=== PATIENT | female | born 1985 | race Caucasian/White ===

== ENCOUNTER 2017-06-23 11:48 | Emergency (ER) | payer OTHER ==
[~2017-06-23] VITALS: Ht 149.9 cm; Wt 55.0 kg
[2017-06-23 11:51] VITALS: TEMP 37.1; Ht 149.9 cm; Wt 55.0 kg
--- NOTE | 2017-06-23 12:23 | EMERGENCY ROOM VISIT NOTE ---
History Report prepared by Sole: Chantelle Paredes Under the Supervision of: Dr. Dong Gilliam M.D. First contact with patient: 11:58 Chief Complaint: ABDOMINAL PAIN Stated Complaint: PAIN UNDER RT LOWER RIBS/CHEST, RT SHOULDER PAIN Nursing Triage Summary: patient to Ed for upper right sided abdominal pain, states "I feel like I am having a gallbladder attack, since yesterday. I had my gallbladder out though" History of Present Illness The patient is a 31 year old female who presents to the Emergency Room with complaints of persistent right upper quadrant abdominal pain that began yesterday. She rates her discomfort as a 5/10 in severity. The patient describes her pain as radiating from her right upper quadrant to her neck. She states that she has some chest pain and reports intermittent shortness of breath. The patient denies any fever, chills, nausea, or vomiting. She notes that the pain worsens when she takes deep breaths, coughs, or yawns. The patient notes that she has had 2 open heart surgeries in the past due to mitral and aortic valve stenosis. The patient states she had a cholecystectomy over one year ago, but notes that her pain feels similar to before she had her cholecystectomy. Source of History: patient Onset: Yesterday Position: abdomen (RUQ) Symptom Intensity: 5/10 Timing: other (persistent ) Modifying Factors (Worsening): breathing (heavy breathing, coughing, yawning ) Associated Symptoms: + chest pain, + SOB, No fevers, No chills, No nausea, No vomiting Review of Systems All systems have been listed, reviewed, and are negative other than those previously mentioned. Please see Additional Medical History Sheet. Past Medical & Surgical Medical Problems: (1) Congenital subaortic stenosis (2) congenital valvular disease (3) Mitral valve disorder (4) open heart surgery Surgical Problems: (1) Hx laparoscopic cholecystectomy Family History FH: cancer FH: diabetes mellitus FH: gallbladder disease FH: heart disease FH: hypertension FH: kidney disease FH: lung disease Social History Smoking Status: Current Every Day Smoker Alcohol Use: none Housing Status: lives with family Occupation Status: unemployed Current/Historical Medications Scheduled PRN Tramadol (Ultram), 50 MG PO Q4H PRN for Pain Allergies Coded Allergies: Penicillins (Unverified Adverse Reaction, Mild, REDNESS, 06/23/17) PT CLAIMS TO HAVE REDNESS WHEN TAKING PENICILLINS, BUT CAN TOLERATE THE DRUG Aspirin (Unverified Adverse Reaction, Unknown, AVOIDS DUE TO HEART PROBLEM , 06/23/17) Physical Exam Vital Signs Date Time Temp Pulse Resp B/P (MAP) Pulse Ox O2 Delivery O2 Flow Rate FiO2 06/23/17 14:00 57 18 113/53 99 Room Air 06/23/17 12:24 88 06/23/17 11:51 37.1 97 20 121/71 98 Room Air Physical Exam GENERAL: Patient awake, alert, oriented x 3. Patient follows commands. Patient does not appear toxic. Patient is adequately hydrated and well- nourished. SKIN: No erythema, pallor, cyanosis or rash HEENT: Normal head, pupils equal, reactive to light and accommodation. CHEST: Well healed midline sternotomy scars. LUNGS: Clear to auscultation. No wheezes, no rales, no rhonchi. HEART: No murmurs. No gallops. No rubs ABDOMEN: Vague right upper quadrant tenderness. Small laparoscopic cholecystectomy scars. No masses, no rebound, no hepatomegaly or splenomegaly. EXTREMITIES: No signs of trauma or infection. NEUROLOGIC: Cranial nerves II-XII within normal limits. No gross motor sensory function deficits. Medical Decision & Procedures ER Provider Diagnostic Interpretation: Radiology results as stated below per my review and radiologist interpretation: GALLBLADDER-ABD LIMITED CLINICAL HISTORY: ruq pain prior cholecystectomy pain. Nausea. TECHNIQUE: Ultrasound COMPARISON STUDY: CT abdomen and pelvis 04/05/2016. Ultrasound 11/27/2014 FINDINGS: Prior cholecystectomy. Mild fatty infiltration of liver. Common bile duct 4 mm. Pancreas and right kidney unremarkable. No evidence for hydronephrosis. IMPRESSION: Negative study status post cholecystectomy. Normal caliber bile ducts. Fatty infiltration of the liver. The above report was generated using voice recognition software. It may contain grammatical, syntax or spelling errors. Electronically signed by: Daniel Rose M.D. 06/23/2017 1:56 PM TWO VIEW CHEST CLINICAL HISTORY: Right upper quadrant abdominal pain. FINDINGS: PA and lateral chest radiographs are compared to study dated 05/09/2015. The patient is status post midline sternotomy. The cardiomediastinal silhouette is unremarkable. Small calcified granulomas are noted. The lungs and pleural spaces are otherwise clear. There is no pneumothorax. The bony thorax appears intact. Call cystectomy clips are seen in the right upper quadrant. There is mild S-shaped thoracolumbar scoliosis. IMPRESSION: No active disease in the chest. Electronically signed by: Conrado Marsh M.D. 06/23/2017 1:29 PM Laboratory Results 06/23/17 12:40 Red Blood Count 4.62, Mean Corpuscular Volume 85.5, Mean Corpuscular Hemoglobin 29.9, Mean Corpuscular Hemoglobin Concent 34.9, Mean Platelet Volume 10.7, Neutrophils (%) (Auto) 58.1, Lymphocytes (%) (Auto) 31.6, Monocytes (%) (Auto) 8.3, Eosinophils (%) (Auto) 0.8, Basophils (%) (Auto) 1.0, Neutrophils # (Auto) 3.57, Lymphocytes # (Auto) 1.94, Monocytes # (Auto) 0.51, Eosinophils # (Auto) 0.05, Basophils # (Auto) 0.06 06/23/17 12:40 Test 06/23/17 12:02 06/23/17 12:40 Urine Color YELLOW Urine Appearance CLEAR (CLEAR) Urine pH 7.0 (4.5-7.5) Urine Specific [place] 1.017 (1.000-1.030) Urine Protein NEG (NEG) Urine Glucose (UA) NEG (NEG) Urine Ketones NEG (NEG) Urine Occult Blood NEG (NEG) Urine Nitrite NEG (NEG) Urine Bilirubin NEG (NEG) Urine Urobilinogen NEG (NEG) Urine Leukocyte Esterase NEG (NEG) Urine Test NEG (NEG) White Blood Count 6.14 K/uL (4.8-10.8) Red Blood Count 4.62 M/uL (4.2-5.4) Hemoglobin 13.8 g/dL (12.0-16.0) Hematocrit 39.5 % (37-47) Mean Corpuscular Volume 85.5 fL (80-100) Mean Corpuscular Hemoglobin 29.9 pg (25-34) Mean Corpuscular Hemoglobin Concent 34.9 g/dl (32-36) Platelet Count 246 K/uL (130-400) Mean Platelet Volume 10.7 fL (7.4-10.4) Neutrophils (%) (Auto) 58.1 % Lymphocytes (%) (Auto) 31.6 % Monocytes (%) (Auto) 8.3 % Eosinophils (%) (Auto) 0.8 % Basophils (%) (Auto) 1.0 % Neutrophils # (Auto) 3.57 K/uL (1.4-6.5) Lymphocytes # (Auto) 1.94 K/uL (1.2-3.4) Monocytes # (Auto) 0.51 K/uL (0.11-0.59) Eosinophils # (Auto) 0.05 K/uL (0-0.5) Basophils # (Auto) 0.06 K/uL (0-0.2) RDW Standard Deviation 37.7 fL (36.4-46.3) RDW Coefficient of Variation 12.2 % (11.5-14.5) Immature Granulocyte % (Auto) 0.2 % Immature Granulocyte # (Auto) 0.01 K/uL (0.00-0.02) Anion Gap 9.0 mmol/L (3-11) Est Creatinine Clear Calc Drug Dose 92.9 ml/min Estimated GFR () 136.7 Estimated GFR (Non- 118.0 BUN/Creatinine Ratio 19.2 (10-20) Calcium Level 9.3 mg/dl (8.5-10.1) Total Bilirubin 0.6 mg/dl (0.2-1) Aspartate Amino Transf (AST/SGOT) U/L (15-37) Alanine Aminotransferase (ALT/SGPT) 18 U/L (12-78) Alkaline Phosphatase 63 U/L (45-117) Troponin I < 0.015 ng/ml (0-0.045) Total Protein 8.3 gm/dl (6.4-8.2) Albumin 4.2 gm/dl (3.4-5.0) Globulin 4.1 gm/dl (2.5-4.0) Albumin/Globulin Ratio 1.0 (0.9-2) Lipase 180 U/L (73-393) Laboratory results as stated above per my review. ECG Indication: abdominal pain Rate (beats per minute): 77 Rhythm: sinus rhythm (with arrhythmia ) Findings: PVC (No PVC), no acute ischemic change, other (no PAC ) ED Course 1203: Past medical records reviewed. The patient was evaluated in room C5. A complete history and physical examination was performed. 1525: I reevaluated the patient and Medical Decision Nurses notes reviewed. Medical history sheet reviewed. Differential diagnosis includes but is not limited to: Common Bile Duct Stone, Pneumonia, Pancreatitis , Peptic Ulcer Disease, pyelonephritis, musculoskeletal pain. Multiple labs, urinalysis and imaging were obtained. Please see above. Patient does not appear to have a common bowel duct stone. I do not think she has pancreatitis. Chest x-ray does not reveal pneumonia. Labs are unremarkable. The patient will be given tramadol for pain. She is to follow- up with her family physician or return here if symptoms are not resolving over the next few days. [place] Drug Monitoring Program Search Results: patient reviewed within database, no issues identified Medication Reconcilliation Current Medication List: was personally reviewed by me Impression Primary Impression: Right upper quadrant abdominal pain Scribe Attestation The scribe's documentation has been prepared under my direction and personally reviewed by me in its entirety. I confirm that the note above accurately reflects all work, treatment, procedures, and medical decision making performed by me. Departure Information Dispostion Home / Self-Care Prescriptions Tramadol (Ultram) 50 Mg Tab 50 MG PO Q4H Y for Pain, #10 TAB Prov: Dong Gilliam M.D. 06/23/17 Referrals No Doctor, Assigned (PCP) Forms Call Back Authorization, HOME CARE DOCUMENTATION FORM, IMPORTANT VISIT INFORMATION Patient Instructions My [facility] Additional Instructions 1 tramadol every 4-6 hours as needed for pain. Follow-up with your family physician within the next week if symptoms have not resolved. Return here sooner if symptoms are getting worse.
[2017-06-23 12:53] LABS: BASO ABS # 0.06 K/uL (0-0.2); COMPLETE YES; EOS % 0.8 %; HEMATOCRIT 39.5 % (37-47); IG% 0.2 %; LYMPH % 31.6 %; LYMPH ABS # 1.94 K/uL (1.2-3.4); MEAN CELL VOLUME 85.5 fL (80-100); MEAN CORPUSCULAR HEMOGLOBIN 29.9 pg (25-34); MEAN CORPUSCULAR HGB CONC 34.9 g/dl (32-36); MEAN PLATELET VOLUME 10.7 fL (7.4-10.4); MONO % 8.3 %; NEUT % 58.1 %; PLATELET COUNT 246 K/uL (130-400); RED BLOOD COUNT 4.62 M/uL (4.2-5.4); WHITE BLOOD COUNT 6.14 K/uL (4.8-10.8)
[2017-06-23 13:29] LABS: ALKALINE PHOSPHATASE 63 U/L (45-117); ALT/SGPT 18 U/L (12-78); BLOOD UREA NITROGEN 13 mg/dl (7-18); BUN/CREATININE RATIO 19.2 (10-20); CALCIUM 9.3 mg/dl (8.5-10.1); CARBON DIOXIDE 22 mmol/L (21-32); CHLORIDE 106 mmol/L (98-107); CREATININE 0.67 mg/dl (0.60-1.20); GLUCOSE 80 mg/dl (70-99); SODIUM 137 mmol/L (136-145)
--- NOTE | 2017-06-23 13:30 | DIAGNOSTIC IMAGING REPORT ---
TWO VIEW CHEST CLINICAL HISTORY: Right upper quadrant abdominal pain. FINDINGS: PA and lateral chest radiographs are compared to study dated 05/09/2015. The patient is status post midline sternotomy. The cardiomediastinal silhouette is unremarkable. Small calcified granulomas are noted. The lungs and pleural spaces are otherwise clear. There is no pneumothorax. The bony thorax appears intact. Call cystectomy clips are seen in the right upper quadrant. There is mild S-shaped thoracolumbar scoliosis. IMPRESSION: No active disease in the chest. Electronically signed by: Conrado Marsh M.D. 06/23/2017 1:29 PM Dictated Date/Time: 06/23/2017 1:28 PM
--- NOTE | 2017-06-23 13:58 | DIAGNOSTIC IMAGING REPORT ---
GALLBLADDER-ABD LIMITED CLINICAL HISTORY: ruq pain prior cholecystectomy pain. Nausea. TECHNIQUE: Ultrasound COMPARISON STUDY: CT abdomen and pelvis 04/05/2016. Ultrasound 11/27/2014 FINDINGS: Prior cholecystectomy. Mild fatty infiltration of liver. Common bile duct 4 mm. Pancreas and right kidney unremarkable. No evidence for hydronephrosis. IMPRESSION: Negative study status post cholecystectomy. Normal caliber bile ducts. Fatty infiltration of the liver. The above report was generated using voice recognition software. It may contain grammatical, syntax or spelling errors. Electronically signed by: Daniel Rose M.D. 06/23/2017 1:56 PM Dictated Date/Time: 06/23/2017 1:55 PM
[2017-06-23 14:10] LABS: URINE APPEARANCE CLEAR (CLEAR); URINE BILIRUBIN NEG (NEG); URINE COLOR YELLOW; URINE NITRITE NEG (NEG); URINE SPECIFIC GRAVITY 1.017 (1.000-1.030); UROBILINOGEN NEG (NEG); ZZUR CULT IF INDIC CLEAN CATCH NO
[2017-06-23 14:15] LABS: MANUAL MICROSCOPIC REQUIRED? NO; REVIEW REQ? NO
[2017-06-23] MEDS ORDERED: TRAM-10 PO (15:39)
[2017-06-23 16:05] VITALS: BP 111/72; PULSE 65; O2SAT 100
== END 2017-06-23 16:06 | disposition home or self-care (01) ==
LOC: C.EDB 11:49 → C.EDC 16:06
DX: R10.11 Right upper quadrant pain (principal); I34.9 Nonrheumatic mitral valve disorder, unspecified; F17.200 Nicotine dependence, unspecified, uncomplicated; Z90.49 Acquired absence of other specified parts of digestive tract; Z88.0 Allergy status to penicillin; Z88.6 Allergy status to analgesic agent; Z80.9 Family history of malignant neoplasm, unspecified; Z83.3 Family history of diabetes mellitus; Z83.79 Family history of other diseases of the digestive system; Z82.49 Family history of ischemic heart disease and other diseases of the circulatory system; Z84.1 Family history of disorders of kidney and ureter

== ENCOUNTER 2017-10-30 18:26 | Emergency (ER) | payer OTHER ==
[~2017-10-30] VITALS: Ht 147.3 cm; Wt 52.7 kg
[~2017-10-30 18:26] MED LIST: TRAM-10 PO
[2017-10-30 18:49] VITALS: TEMP 37; Ht 147.3 cm; Wt 52.7 kg
[2017-10-30] MEDS ORDERED: SODIUM CHLORIDE 0.9% 1000ML 1,000 ML IV STA (19:06)
[2017-10-30] MEDS ORDERED: KETOROLAC TROMETHAMINE 30 MG/ML VIAL IV STA (19:06)
--- NOTE | 2017-10-30 19:23 | DIAGNOSTIC IMAGING REPORT ---
CHEST ONE VIEW PORTABLE CLINICAL HISTORY: 32 years-old Female presenting with Evaluate Fever/Sepsis. TECHNIQUE: Portable upright AP view of the chest was obtained. COMPARISON: 06/23/2017. FINDINGS: Median sternotomy wires noted. Vertex silhouette top normal in size. No focal opacity. No large effusion or pneumothorax. Osseous structures normal. Upper abdomen normal. IMPRESSION: 1. No acute cardiopulmonary disease. Electronically signed by: Delmer Noguera M.D. 10/30/2017 7:21 PM Dictated Date/Time: 10/30/2017 7:21 PM
[2017-10-30 19:50] LABS: BASO % 0.5 %; BASO ABS # 0.05 K/uL (0-0.2); EOS % 0.2 %; EOS ABS # 0.02 K/uL (0-0.5); HEMATOCRIT 34.9 % (37-47); HEMOGLOBIN 12.5 g/dL (12.0-16.0); IG# 0.02 K/uL (0.00-0.02); LYMPH % 17.8 %; LYMPH ABS # 1.91 K/uL (1.2-3.4); MEAN CELL VOLUME 85.3 fL (80-100); MEAN CORPUSCULAR HEMOGLOBIN 30.6 pg (25-34); MEAN CORPUSCULAR HGB CONC 35.8 g/dl (32-36); MEAN PLATELET VOLUME 10.6 fL (7.4-10.4); MONO % 8.2 %; MONO ABS # 0.88 K/uL (0.11-0.59); NEUT % 73.1 %; NEUT ABS # 7.85 K/uL (1.4-6.5); PLATELET COUNT 213 K/uL (130-400); RED CELL DISTRIBUTION WIDTH CV 12.4 % (11.5-14.5); RED CELL DISTRIBUTION WIDTH SD 38.6 fL (36.4-46.3); WHITE BLOOD COUNT 10.73 K/uL (4.8-10.8)
[2017-10-30 20:11] LABS: ALBUMIN 3.8 gm/dl (3.4-5.0); ALT/SGPT 19 U/L (12-78); BLOOD UREA NITROGEN 7 mg/dl (7-18); CALCIUM 9.1 mg/dl (8.5-10.1); CARBON DIOXIDE 26 mmol/L (21-32); CREATININE 0.74 mg/dl (0.60-1.20); GLUCOSE 83 mg/dl (70-99); POTASSIUM 3.2 mmol/L (3.5-5.1); SODIUM 137 mmol/L (136-145)
[2017-10-30 20:16] LABS: ALKALINE PHOSPHATASE 68 U/L (45-117); AST/SGOT 18 U/L (15-37); CKMB 0.7 ng/ml (0.5-3.6); TOTAL PROTEIN 8.1 gm/dl (6.4-8.2)
[2017-10-30 20:30] LABS: INFLUENZA B ANTIGEN Neg for Influ B (NEG)
[2017-10-30] MEDS ORDERED: SERT-234 PO (21:04)
--- NOTE | 2017-10-30 22:04 | EMERGENCY ROOM VISIT NOTE ---
History Report prepared by Sole: Trino Estrada Under the Supervision of: Dr. Donnie Sanches D.O. First contact with patient: 19:00 Chief Complaint: BACK PAIN Stated Complaint: SEVERE BACK PAIN, NECK PAIN, KIDNEY AREA History of Present Illness The patient is a 32 year old female who presents to the Emergency Room with complaints of constant severe back pain that she rates as 9/10 that began 2 days ago. She complains of pain in her throat, between her shoulder blades, and pain in her kidneys. She complains of a sore throat, and fatigue. She states she had fever 2 days ago. She spoke to her PCP and was prescribed Tamiflu which she started on 10/29/2017. She states she has been taking Ibuprofen with minimal improvement. She takes Zoloft every day. She denies headaches, urinary symptoms , cough, diarrhea, nausea, and vomiting. Of note, her LMP was 10/09/2017. Source of History: patient Onset: 2 days ago Position: back Symptom Intensity: pain rated as 9/10 Timing: constant Associated Symptoms: + sorethroat, + fatigue, No headache, No cough, No nausea, No vomiting, No diarrhea, No urinary symptoms Review of Systems See HPI for pertinent positives & negatives. A total of 10 systems reviewed and were otherwise negative. Past Medical & Surgical Medical Problems: (1) Congenital subaortic stenosis (2) congenital valvular disease (3) Mitral valve disorder (4) open heart surgery Surgical Problems: (1) History of open heart surgery (2) Hx laparoscopic cholecystectomy (3) Hx of cholecystectomy Family History FH: cancer FH: diabetes mellitus FH: gallbladder disease FH: heart disease FH: hypertension FH: kidney disease FH: lung disease Social History Smoking Status: Current Every Day Smoker Alcohol Use: none Housing Status: lives with family Occupation Status: unemployed Current/Historical Medications Scheduled Sertraline (Zoloft), 100 MG PO DAILY Allergies Coded Allergies: Penicillins (Unverified Adverse Reaction, Mild, REDNESS, 10/30/17) PT CLAIMS TO HAVE REDNESS WHEN TAKING PENICILLINS, BUT CAN TOLERATE THE DRUG Aspirin (Unverified Adverse Reaction, Unknown, AVOIDS DUE TO HEART PROBLEM , 10/30/17) Physical Exam Vital Signs Date Time Temp Pulse Resp B/P (MAP) Pulse Ox O2 Delivery O2 Flow Rate FiO2 10/30/17 22:29 73 18 108/70 100 10/30/17 21:44 59 18 96/59 98 Room Air 10/30/17 19:45 75 10/30/17 19:44 67 18 101/68 96 Room Air 10/30/17 18:49 37.0 90 18 105/68 96 Room Air Physical Exam CONSTITUTIONAL/VITAL SIGNS: Reviewed / noted above. GENERAL: Non-toxic in appearance. INTEGUMENTARY: Warm, dry, and [place]. HEAD: Normocephalic. EYES: without scleral icterus or trauma. ENT/OROPHARYNX: clear and moist. LYMPHADENOPATHY/NECK: Is supple without lymphadenopathy or meningismus. RESPIRATORY: Lungs clear and equal. CARDIOVASCULAR: Regular rate and rhythm. GI/ABDOMEN: Soft and nontender. No organomegaly or pulsatile mass. No rebound or guarding. Normal bowel sounds. EXTREMITIES: Warm and well perfused. BACK: No CVA tenderness. NEUROLOGICAL: Intact without focal deficits. PSYCHIATRIC: normal affect. MUSCULOSKELETAL: Normally developed with good muscle tone. Medical Decision & Procedures ER Provider Diagnostic Interpretation: Radiology results as stated below per my review and radiologist interpretation: CHEST ONE VIEW PORTABLE CLINICAL HISTORY: 32 years-old Female presenting with Evaluate Fever/Sepsis. TECHNIQUE: Portable upright AP view of the chest was obtained. COMPARISON: 06/23/2017. FINDINGS: Median sternotomy wires noted. Vertex silhouette top normal in size. No focal opacity. No large effusion or pneumothorax. Osseous structures normal. Upper abdomen normal. IMPRESSION: 1. No acute cardiopulmonary disease. Electronically signed by: Delmer Noguera M.D. 10/30/2017 7:21 PM Dictated Date/Time: 10/30/2017 7:21 PM Laboratory Results 10/30/17 19:40 Red Blood Count 4.09, Mean Corpuscular Volume 85.3, Mean Corpuscular Hemoglobin 30.6, Mean Corpuscular Hemoglobin Concent 35.8, Mean Platelet Volume 10.6, Neutrophils (%) (Auto) 73.1, Lymphocytes (%) (Auto) 17.8, Monocytes (%) (Auto) 8.2, Eosinophils (%) (Auto) 0.2, Basophils (%) (Auto) 0.5, Neutrophils # (Auto) 7.85, Lymphocytes # (Auto) 1.91, Monocytes # (Auto) 0.88, Eosinophils # (Auto) 0.02, Basophils # (Auto) 0.05 4/5/18 19:40 Test 10/30/17 00:00 10/30/17 19:40 10/30/17 21:05 Influenza Type A Antigen Neg for Influ A (NEG) Influenza Type B Antigen Neg for Influ B (NEG) White Blood Count 10.73 K/uL (4.8-10.8) Red Blood Count 4.09 M/uL (4.2-5.4) Hemoglobin 12.5 g/dL (12.0-16.0) Hematocrit 34.9 % (37-47) Mean Corpuscular Volume 85.3 fL (80-100) Mean Corpuscular Hemoglobin 30.6 pg (25-34) Mean Corpuscular Hemoglobin Concent 35.8 g/dl (32-36) Platelet Count 213 K/uL (130-400) Mean Platelet Volume 10.6 fL (7.4-10.4) Neutrophils (%) (Auto) 73.1 % Lymphocytes (%) (Auto) 17.8 % Monocytes (%) (Auto) 8.2 % Eosinophils (%) (Auto) 0.2 % Basophils (%) (Auto) 0.5 % Neutrophils # (Auto) 7.85 K/uL (1.4-6.5) Lymphocytes # (Auto) 1.91 K/uL (1.2-3.4) Monocytes # (Auto) 0.88 K/uL (0.11-0.59) Eosinophils # (Auto) 0.02 K/uL (0-0.5) Basophils # (Auto) 0.05 K/uL (0-0.2) RDW Standard Deviation 38.6 fL (36.4-46.3) RDW Coefficient of Variation 12.4 % (11.5-14.5) Immature Granulocyte % (Auto) 0.2 % Immature Granulocyte # (Auto) 0.02 K/uL (0.00-0.02) Anion Gap 8.0 mmol/L (3-11) Est Creatinine Clear Calc Drug Dose 79.3 ml/min Estimated GFR () 125.1 Estimated GFR (Non- 108.0 BUN/Creatinine Ratio 9.5 (10-20) Calcium Level 9.1 mg/dl (8.5-10.1) Total Bilirubin 0.3 mg/dl (0.2-1) Direct Bilirubin < 0.1 mg/dl (0-0.2) Aspartate Amino Transf (AST/SGOT) 18 U/L (15-37) Alanine Aminotransferase (ALT/SGPT) 19 U/L (12-78) Alkaline Phosphatase 68 U/L (45-117) Total Creatine Kinase 95 U/L (26-192) Creatine Kinase MB 0.7 ng/ml (0.5-3.6) Creatine Kinase MB Ratio 0.7 (0-3.0) Troponin I < 0.015 ng/ml (0-0.045) Total Protein 8.1 gm/dl (6.4-8.2) Albumin 3.8 gm/dl (3.4-5.0) Urine Color YELLOW Urine Appearance CLOUDY (CLEAR) Urine pH 8.0 (4.5-7.5) Urine Specific [place] 1.011 (1.000-1.030) Urine Protein NEG (NEG) Urine Glucose (UA) NEG (NEG) Urine Ketones NEG (NEG) Urine Occult Blood NEG (NEG) Urine Nitrite NEG (NEG) Urine Bilirubin NEG (NEG) Urine Urobilinogen NEG (NEG) Urine Leukocyte Esterase NEG (NEG) Urine WBC (Auto) 1-5 /hpf (0-5) Urine RBC (Auto) 0-4 /hpf (0-4) Urine Hyaline Casts (Auto) 1-5 /lpf (0-5) Urine Epithelial Cells (Auto) >30 /lpf (0-5) Urine Bacteria (Auto) NEG (NEG) Urine Test NEG (NEG) Laboratory results as stated above per my review. Medications Administered Medications (Trade) Dose Ordered Sig/Berenice Route Start Time Stop Time Status Last Admin Dose Admin Sodium Chloride 1,000 ml @ 999 mls/hr Q1H1M STAT IV 10/30/17 19:06 10/30/17 20:06 DC 10/30/17 19:41 999 MLS/HR Ketorolac Tromethamine (Toradol Inj) 30 mg NOW STAT IV 10/30/17 19:06 10/30/17 19:08 DC 10/30/17 19:41 30 MG ECG Per My Interpretation Indication: back/shoulder pain Rate (beats per minute): 68 Rhythm: normal sinus Findings: no ectopy, other (No ST elevation) ED Course 1899: Previous medical records were reviewed. The patient was evaluated in room A10. A complete history and physical examination was performed. 1905: Toradol Inj, 30 mg, IV; Sodium Chloride 1000 ml @ 999 mls/hr IV. 2204: On reevaluation, the patient is resting. I discussed the results and findings with the patient. She verbalized agreement of the treatment plan. She was discharged home. Medical Decision Differential includes viral illness, influenza, streptococcal pharyngitis, meningitis, pneumonia, sinusitis, UTI, pyelonephritis, otitis media. This is a 32-year-old female who presents to the ED with a chief complaint of discomfort all over. She is primarily reporting sore throat, upper lower back pain, flank pain as well as fatigue. The patient denies any urinary symptoms, denies cough, denies headache. She states that she took ibuprofen yesterday but nothing today. She contacted her PCP yesterday and was felt to have flu symptoms and started on Tamiflu. She has had symptoms since Friday, 2 days. Vital signs are normal. Physical exam was unremarkable. The patient's test results revealed a normal EKG with a normal sinus rhythm. CBC is normal, troponin was negative, complete metabolic panel was unremarkable. Flu swab was negative, chest x-ray did not show acute process. test and urinalysis did not show abnormalities. The patient was treated with IV fluids and IV Toradol. She was felt to be stable for discharge. Medication Reconcilliation Current Medication List: was personally reviewed by me Blood Pressure Screening Patient's blood pressure: Normal blood pressure Blood pressure disposition: Did not require urgent referral Impression Primary Impression: Flu-like symptoms Scribe Attestation The scribe's documentation has been prepared under my direction and personally reviewed by me in its entirety. I confirm that the note above accurately reflects all work, treatment, procedures, and medical decision making performed by me. Departure Information Dispostion Home / Self-Care Referrals No Doctor, Assigned (PCP) Patient Instructions My [facility] Additional Instructions Follow-up with your doctor for further care and evaluation in 1-2 days. Return to the emergency department for worsening or new symptoms or any concerns. You have been examined and treated today on an emergency basis only. This is not a substitute for, or an effort to provide, complete comprehensive medical care. It is impossible to recognize and treat all injuries or illnesses in a single emergency department visit. It is therefore important that you follow up closely with your doctor. Call as soon as possible for an appointment.
[2017-10-30 22:29] VITALS: BP 108/70; PULSE 73; O2SAT 100
== END 2017-10-30 22:29 | disposition home or self-care (01) ==
LOC: C.EDB 18:27 → C.EDA 22:29
DX: M54.9 Dorsalgia, unspecified (principal); R07.0 Pain in throat; R10.30 Lower abdominal pain, unspecified; R53.83 Other fatigue; F17.210 Nicotine dependence, cigarettes, uncomplicated; Z90.49 Acquired absence of other specified parts of digestive tract; I34.9 Nonrheumatic mitral valve disorder, unspecified; Z88.0 Allergy status to penicillin; Z88.6 Allergy status to analgesic agent; Z80.9 Family history of malignant neoplasm, unspecified; Z83.3 Family history of diabetes mellitus; Z83.79 Family history of other diseases of the digestive system; Z82.49 Family history of ischemic heart disease and other diseases of the circulatory system; Z84.1 Family history of disorders of kidney and ureter

== ENCOUNTER 2019-04-02 09:59 | Inpatient (IN) ==
[2019-04-02] MEDS ORDERED: ONDANSETRON INJ 2 MG/ML 2 ML VIAL IV STA (11:21)
[2019-04-02] MEDS ORDERED: MoRPHine SULFATE 4 MG/ML 1 ML CARP\\VIAL IV STA (11:21)
[2019-04-02] MEDS ORDERED: SODIUM CHLORIDE 0.9% 1000ML 1,000 ML IV SCH (11:30)
--- NOTE | 2019-04-02 11:50 | XRay Report ---
XR chest 1V portable HISTORY: 33 years-old Female chest pain acute atypical chest pain COMPARISON: Chest radiograph 03/17/2018 TECHNIQUE: Portable AP view of the chest FINDINGS: Cardiac silhouette is enlarged, unchanged. Prior median sternotomy. No pneumothorax, large pleural ef fusion, focal airspace consolidation or overt pulmonary edema. Degenerative changes of the shoulders and spine. Surgical clips project over the abdominal right upper quadrant. IMPRESSION: No acute process. The above report was generated using voice recognition software. It may contain grammatical, syntax o r spelling errors. Electronically signed by: Gustavo Durham M.D. 04/02/2019 11:49 AM
[2019-04-02 12:06] LABS: Basophils # (auto) 0.03 K/uL (0-0.2); Basophils % (auto) 0.4 %; Eosinophils # (auto) 0.04 K/uL (0-0.5); Eosinophils % (auto) 0.5 %; Hematocrit (blood only) 41.4 % (37-47); Immature Granulocytes # (auto) 0.02 K/uL (0.00-0.02); Immature Granulocytes % (auto) 0.3 %; Lymphocytes # (auto) 1.34 K/uL (1.2-3.4); Mean Corpuscular Hemoglobin 31.1 pg (25-34); Mean Corpuscular Hgb Conc 36.2 g/dL (32-36); Mean Corpuscular Volume 85.9 fL (80-100); Monocytes % (auto) 10.8 %; Platelet Count 211 K/uL (130-400); RDW Coefficient of Variation 12.4 % (11.5-14.5); RDW Standard Deviation 39.1 fL (36.4-46.3); Red Blood Count 4.82 M/uL (4.2-5.4); White Blood Count 7.43 K/uL (4.8-10.8)
[2019-04-02 12:26] LABS: Alanine Aminotransferase 24 U/L (12-78); Albumin Level 4.1 gm/dl (3.4-5.0); Aspartate Aminotransferase 22 U/L (15-37); BUN Creatinine Ratio 10.1 (10-20); Blood Urea Nitrogen 8 mg/dl (7-18); Carbon Dioxide 25 mmol/L (21-32); Chloride 105 mmol/L (98-107); Creatinine Clr Calc Pharmacy 84.2 ml/min; Est GFR (African American) 118.4; Est GFR (Non-African American) 102.2; Glucose 79 mg/dl (70-99); Lipase 83 U/L (73-393); Potassium 3.6 mmol/L (3.5-5.1); Sodium 138 mmol/L (136-145)
[2019-04-02] MEDS ORDERED: KETOROLAC 30 MG/ML VIAL IV STA (12:27)
[2019-04-02 12:31] LABS: Alkaline Phosphatase 69 U/L (45-117); Bilirubin,Total 0.7 mg/dl (0.2-1); Globulin 4.1 gm/dl (2.5-4.0); Total Protein 8.2 gm/dl (6.4-8.2); Troponin I < 0.015 ng/ml (0-0.045)
[2019-04-02] MEDS ORDERED: LIDOCAINE 5% 1 PATCH TD STA (13:02)
[2019-04-02] MEDS ORDERED: ALBUT/IPRATROP 3MG/0.5MG NEB 3 ML VIAL NEB STA (13:02)
[2019-04-02] MEDS ORDERED: OPTIRAY 320 125ml IV PRN (13:03)
--- NOTE | 2019-04-02 13:08 | CT Scan Report ---
CT ANGIOGRAM OF THE CHEST CLINICAL HISTORY: Right-sided chest pain. Possible pulmonary embolism. COMPARISON STUDY: Chest x-ray dated 04/02/2019 TECHNIQUE: Following the IV administration of 120 mL of [id number]-[id number], CT angiogram of the thorax was p erformed from the thoracic inlet to the lung bases utilizing the pulmonary embolus protocol. Images a re reviewed in the axial, sagittal, and coronal planes. IV contrast was administered without complica tion. MIP imaging was performed. A dose lowering technique was utilized adhering to the principles o f ALARA. CT DOSE: 400.77 mGycm FINDINGS: No pathologically enlarged axillary mediastinal or hilar lymph nodes were visualized. There was no evidence of thoracic aortic dilatation. There are right lower lobe pulmonary filling defects indicative of acute pulmonary embolism. There ar e no findings to indicate right ventricular strain. There is a small right pleural effusion. There are right lower lobe airspace opacities, atelectasis versus pulmonary infarction. There are min or left basilar atelectatic changes IMPRESSION: 1. Right lower lobe pulmonary artery filling defects indicating acute pulmonary embolism 2. Small right pleural effusion with right basilar airspace opacities, atelectasis versus pulmonary i nfarction Electronically signed by: Jim [place] M.D. 04/02/2019 1:07 PM
[2019-04-02 13:46] LABS: Appearance Urine Clear (Clear); Bilirubin Urine Negative (Negative); Blood Urine Negative (Negative); Color Urine Yellow; Glucose Urine UA Negative (Negative); Ketones Urine Negative (Negative); Leukocyte Esterase Urine Negative (Negative); Nitrite Urine Negative (Negative); Protein Urine Negative (Negative); Specific Gravity Urine 1.009 (1.000-1.030); Urobilinogen Urine Negative (Negative)
[2019-04-02] MEDS ORDERED: ENOXAPARIN 1 MG/KG SC SCH (14:00)
[2019-04-02] MEDS ORDERED: ENOXAPARIN INJ 60 MG/0.6 ML SYR SQ ONE (14:15)
--- NOTE | 2019-04-02 15:07 | History & Physical Report ---
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 -Patient has also had over 1 year of amenorrhea. Will order urine test to rule out . -CT PE reports possible atelectasis vs pulmonary infarct -Get bilateral Doppler venous ultrasound, lower extremity -Continue therapeutic Lovenox for now -Patient will need thrombophilia work-up on follow-up with PCP -Patient is unsure about timing of last cervical cancer. -Counseled patient extensively on need for smoking cessation -Pain controlled with Tylenol PRN. -Currently hemodynamically stable. 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 Right-sided upper abdominal pain started about 2 weeks ago described as moderate to severe, intermittent, occasionally associated with nausea, not related to activity, not relieved by ibuprofen. Patient had difficulty describing the na ture of the pain. For this patient presented to the emergency room, was evaluated and discharged on omeprazole and ondansetron. However, pain got worse yesterday, associated with cough productive of intermittent scant sputum, fevers and was worse on deep inspiration and laying on the right side. Not related to foods.Patient denied any chills, anorexia, constipation or diarrhea, melena, yellowish discoloration of eyes. Denied any history of similar complaint in the past. Patient smokes about 1 pack 3 days for the past 17 years. Denies any alcohol use or illicit drug use. Reports an active lifestyle. Denies any recent travels, fall or immobilization Has not had been menses for over 1 year. Reports she has had extensive evaluation some months ago without any definitive results. Allergies Allergy/AdvReac Type Severity Reaction Status Date / Time acetaminophen [From Tylenol] AdvReac Mild Vomiting Verified 04/02/19 14:53 Penicillins AdvReac Mild REDNESS Verified 04/02/19 14:53 aspirin AdvReac Unknown AVOIDS DUE Unverified 04/02/19 11:42 TO HEART PROBLEM Home Medications Home Medications Medication Instructions Recorded Confirmed Type omeprazole 40 mg PO DAILYBB 04/02/19 04/02/19 History ondansetron HCl 4 mg PO Q8H PRN 04/02/19 04/02/19 History Past Med/Surg History Medical History Congenital subaortic stenosis (Chronic) Mitral valve disorder (Chronic 01/05/13) Acute cholecystitis (Resolved) Surgical History Hx laparoscopic cholecystectomy H/O angioplasty History of open heart surgery Family History Aunt Breast cancer Deep vein thrombosis Pulmonary embolism Grandfather (Maternal) Lung cancer Other No pertinent family history in first degree relatives Social History Preferred Language: Uzbek Communication Ability: Effective 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: No marital status: Single Current Living Situation: Family current occupational status: employed Feels Safe at Home: Yes Smoking Status: Current every day smoker Hx Alcohol Use: No Hx Substance Use: No Childhood Exposure to Second-Hand Smoke: No Physical Activity Frequency: Daily Review of Systems Constitutional: + fever; no chills, no fatigue and no anorexia Eyes: no diplopia, no eye pain and no worsening vision Ear, Nose, Mouth, Throat: no ear discharge, no hearing loss, no nasal congestion, no nasal discharge, no epistaxis, no sore throat and no hoarseness Respiratory: + cough (Intermittently productive of scanty sputum), + pain on inspiration and + pain with cough; no dyspnea, no dyspnea on exertion and no hemoptysis Cardiovascular: no chest pain, no chest pain with activity, no palpitations, no lightheadedness, no syncope, no edema and no calf pain Gastrointestinal: + abdominal pain (RUQ pain) and + nausea (occasional); no bloating, no heartburn, no coffee ground emesis, no change in bowel habits, no change in stools, no constipation, no diarrhea/loose stools, no blood in stools and no melena Genitourinary: no dysuria and no urinary frequency Amenorrhea for over one year Musculoskeletal: no back pain, no joint pain and no muscle weakness Integumentary: no rash, no lesions and no erythema Neurologic: no falls, no paralysis, no numbness and no syncope Psychiatric: no depression, no suicidal ideation and no anxiety Endocrine: no polydipsia, no polyphagia and no cold intolerance Hematologic / Lymphatic: no easy bleeding, no coagulopathy and no unexplained weight loss Physical Exam Constitutional: well nourished, + well hydrated and average body habitus; no acute distress and not ill appearing Eyes: PERRL, conjunctivae normal, anicteric sclerae + anicteric sclerae, PERRL and EOM intact bilaterally ENMT: external ear and nose normal, oropharynx normal Neck: normal visual inspection; no tracheal deviation Respiratory: normal respiratory effort, lungs clear to auscultation no respiratory distress Auscultation: no crackles and no wheezes Cardiovascular: RRR, no murmur, no edema Rate/Rhythm: regular rate Heart Sounds: normal S1 and normal S2; no murmur Vessels: normal peripheral pulses Extremities: no pedal edema Chest (Breasts): Chest: normal inspection of chest Additional Comments: Anterior surgical scar on anterior chest wall Gastrointestinal (Abdomen): normal bowel sounds, soft, nontender, no hepatosplenomegaly Inspection/Auscultation: normal bowel sounds; abdomen not distended Percussion/Palpation: abdomen soft; abdomen nontender Musculoskeletal: no cyanosis or clubbing, extremities motor strength 5/5 Skin: Surgical scar on anterior chest wall Neurologic: moves all extremities AOx3 Psychiatric: Orientation: oriented x 3 Affect: euthymic affect; no depre ssed affect Lymphatic: no cervical or axillary lymphadenopathy Results & Data Vital Signs (Past 12 Hours) Vital Signs Temp Pulse Pulse Resp BP BP Pulse Ox 04/02/19 14:30 79 22 104/66 97 04/02/19 14:00 83 21 110/66 99 04/02/19 13:30 85 25 H 116/68 100 04/02/19 13:26 80 16 100 04/02/19 12:30 78 22 108/62 99 04/02/19 12:10 99 04/02/19 11:03 87 24 105/67 98 04/02/19 10:07 37.4 C 96 H 20 105/71 96 Laboratory Results Short CBC 04/02/19 Range/Units 11:45 WBC 7.43 (4.8-10.8) K/uL Hgb 15.0 (12.0-16.0) g/dL Hct 41.4 (37-47) % Plt Count 211 (130-400) K/uL BMP 04/02/19 11:45 Sodium 138 Potassium 3.6 Chloride 105 Carbon Dioxide 25 BUN 8 Creatinine 0.77 Glucose 79 Calcium 9.0 Cardiac Enzymes 04/02/19 Range/Units 11:45 Troponin I < 0.015 (0-0.045) ng/ml Liver Function 04/02/19 Range/Units 11:45 Total Bilirubin 0.7 (0.2-1) mg/dl AST 22 (15-37) U/L ALT 24 (12-78) U/L Alkaline Phosphatase 69 (45-117) U/L Albumin 4.1 (3.4-5.0) gm/dl Urine 04/02/19 Range/Units 11:10 Urine Color Yellow Urine Appearance Clear (Clear) Urine pH 7.0 (4.5-7.5) Ur Specific [place] 1.009 (1.000-1.030) Urine Protein Negative (Negative) Urine Glucose (UA) Negative (Negative) 04/02/19 11:45 04/02/19 11:45 Diagnostic Findings Chest x-ray showed enlarged cardiac silhouette that is unchanged, no pneumothorax or focal consolidation. CT angiogram showed right lower lobe filling defects consistent with acute pulmonary embolism, small right pleural effusion with possible atelectasis ve rsus pulmonary infection. ECG Additional Comments: EKG done at 12:14 PM was normal sinus rhythm, rate of 85, no no ST-T changes, normal QRS 84 MS, QTc 456 MS. Code Status & VTE Plan VTE Prophylaxis Plan VTE Prophylaxis will be ordered: Yes (1) Pulmonary embolism Acute cor pulmonale presence: without acute cor pulmonale Chronicity: unspecified Pulmonary embolism type: unspecified Qualified Code(s): I26.99 - Other pulmonary embolism without acute cor pulmonale
--- NOTE | 2019-04-02 15:14 | Emergency Department Note ---
Entered by Aide Ferro acting as a scribe for Lucio Crepso MD History of Present Illness General Chief complaint: Abdominal Pain Stated complaint: ABDOMINAL PAIN Time Seen by Provider: 04/02/19 10:55 Source: patient History of Present Illness Onset (ago): month(s) 1 Location: abdomen (right sided) Pain Consistency: + other (worsening) Maximum Pain Intensity: 8 Relieved By: + medication (Motrin) Exacerbated By: + other (breathing) Associated symptoms: + denies other symptoms (urinary symptoms, abnormal bowel movements, leg swelling), + cough and + fever/chills (fever) The patient is a 33 year old female w/ PMHx bronchitis, cholecystitis, congenital subaortic stenosis, hypokalemia, mitral valve disorder who presents to the ED w/ CC of worsening right sided abdominal pain starting a month ago. The patient states that it is he whole right side and feels worse when she breaths. The patient complains of a fever of 100.5 and a productive cough. She notes that her fever has been alleviated by Motrin and her cough produces yellow mucus. The patient denies a history of blood clots, recent falls, recent trauma, the use of a blood thinner, use of control, recent travel, recent procedures, urinary symptoms, abnormal bowel movements, leg swelling, and a history of lung problems. Home Medications Home Medications Medication Instructions Recorded Confirmed Type omeprazole 40 mg PO DAILYBB 04/02/19 04/02/19 History ondansetron HCl 4 mg PO Q8H PRN 04/02/19 04/02/19 History Allergies Allergy/AdvReac Type Severity Reaction Status Date / Time acetaminophen [From Tylenol] AdvReac Mild Vomiting Verified 04/02/19 14:53 Penicillins AdvReac Mild REDNESS Verified 04/02/19 14:53 aspirin AdvReac Unknown AVOIDS DUE Unverified 04/02/19 11:42 TO HEART PROBLEM Past Med/Surg History Medical History Congenital subaortic stenosis (Chronic) Mitral valve disorder (Chronic 01/05/13) Acute cholecystitis (Resolved) Surgical History Hx laparoscopic cholecystectomy H/O angioplasty History of open heart surgery Family History Aunt Breast cancer Deep vein thrombosis Pulmonary embolism Grandfather (Maternal) Lung cancer Other No pertinent family history in first degree relatives Social History Preferred Language: [place] Leone[place] Communication Ability: Effective Pattern Weaver Required: Yes Beliefs That Will Affect Care: None marital status: Single Current Living Situation: Family current occupational status: employed Other Information That Helps Us Care for You: No Feels Safe at Home: Yes Safety Concerns: Feels Safe At This Time Smoking Status: Current every day smoker Tobacco Type: cigarettes ; Do You Dip or Chew Tobacco: No ; Second Hand Exposure: No ; Tobacco Cessation Education Requested by Patient: No Hx Alcohol Use: No Hx Substance Use: No Childhood Exposure to Second-Hand Smoke: No Physical Activity Frequency: Daily Review of Systems See HPI for pertinent positives & negatives. and A total of 10 systems reviewed and were otherwise negative Physical Exam Vital Signs Vital Signs - 24 hr 04/02/19 10:07 04/02/19 11:03 04/02/19 12:10 Temperature 37.4 C Temperature Source Oral Sepsis Recent Fever Within 48 Hours No Sepsis New/Unexplained Change in Mental Status No Sepsis Action Taken by Nursing No Action Required Pulse Rate 96 H Pulse Rate [Apical] 87 Pulse Rate from SpO2 Sensor Respiratory Rate 20 24 Respiratory Effort / Characteristics Respiratory Depth Normal Blood Pressure 105/71 Blood Pressure [Left Arm] 105/67 Blood Pressure Mean 82 Blood Pressure Mean [Left Arm] 79 Pulse Oximetry 96 98 99 Oxygen Delivery Method Room Air Room Air Room Air 04/02/19 12:30 04/02/19 13:26 04/02/19 13:30 Temperature Temperature Source Sepsis Recent Fever Within 48 Hours Sepsis New/Unexplained Change in Mental Status Sepsis Action Taken by Nursing Pulse Rate 78 85 Pulse Rate [Apical] 80 Pulse Rate from SpO2 Sensor 76 83 Respiratory Rate 22 16 25 H Respiratory Effort / Characteristics Spontaneous Respiratory Depth Blood Pressure 108/62 116/68 Blood Pressure [Left Arm] Blood Pressure Mean 77 84 Blood Pressure Mean [Left Arm] Pulse Oximetry 99 100 100 Oxygen Delivery Method Room Air Room Air Room Air 04/02/19 14:00 04/02/19 14:30 Temperature Temperature Source Sepsis Recent Fever Within 48 Hours Sepsis New/Unexplained Change in Mental Status Sepsis Action Taken by Nursing Pulse Rate 83 79 Pulse Rate [Apical] Pulse Rate from SpO2 Sensor 83 82 Respiratory Rate 21 22 Respiratory Effort / Characteristics Respiratory Depth Blood Pressure 110/66 104/66 Blood Pressure [Left Arm] Blood Pressure Mean 80 78 Blood Pressure Mean [Left Arm] Pulse Oximetry 99 97 Oxygen Delivery Method Room Air GENERAL: Well appearing, well nourished, NAD, non-toxic. EYE EXAM: Normal conjunctiva. PERRL, no anisocoria and EOM's grossly intact w/o pain. OROPHARYNX: Moist mucous membranes. Grossly normal dentition. NECK: Supple, no nuchal rigidity, no adenopathy, non-tender. No signs of meningismus. LUNGS: Clear to auscultation. Normal chest wall mechanics. HEART: NSR, no MRG. CHEST: Well healed sternotomy scar. No reproducible right side chest wall pain. No crepitus. ABDOMEN: Abdomen soft, non-tender, normo-active bowel sounds, no masses, no rebound or guarding. No RUQ pain. Negative Carlin's sign. BACK: No CVA TTP. SKIN: No rashes and no bruising. UPPER EXTREMITIES: Upper extremities are grossly normal. LOWER EXTREMITIES: No pitting edema. No calf pain. NEURO EXAM: A&O x3, cranial nerves II-XII grossly intact, normal speech, moves all 4 extremities on command w/o issue. Course 1112: Past medical records reviewed. The patient was evaluated in room C9. A complete history and physical exam was performed. 1227: I reviewed the EMR and the patient has taken NSAIDs in the past. 1325: I reevaluated the patient and updated her on her test results at this time. I discussed the treatment plan with her. She verbally agrees and understands. 1327: I discussed the patient's case with Dr. Bill Garcia. He states that there is no contraindication of anticoagulation. 1341: I discussed the patient's case with CHANDLER Nelson. She will evaluate the patient for further management under Dr. Ellis' service. Consultations Consultation #1: I discussed the patient's case with Dr. Bill Garcia. He states that there is no contraindication of anticoagulation. Time: 13:27 Consultation #2: I discussed the patient's case with CHANDLER Nelson. She will evaluate the patient for further management under Dr. Ellis' service. Time: 13:41 Administered Medications Enoxaparin Sodium (Lovenox) 60 mg SQ Q12H JENNIFER Stop: 05/02/19 23:29 Last Admin: 04/02/19 23:34 Dose: 60 mg Documented by: [id number] Ioversol (Optiray 320 125ml) 120 ml IV ONCE PRN PRN Reason: Interaction Checking Stop: 04/06/19 13:02 Last Admin: 04/02/19 13:04 Dose: 120 ml Documented by: [id number] Miscellaneous (Remove Lidoderm Patch) 1 ea N/A DAILY@2100 [facility] Stop: 05/02/19 20:59 Last Admin: 04/02/19 23:03 Dose: Not Given Documented by: [id number] Discontinued Medications Albuterol (Duoneb) 3 ml NEB NOW STA Stop: 04/02/19 13:03 Last Admin: 04/02/19 13:22 Dose: 3 ml Documented by: [id number] Enoxaparin Sodium (Lovenox 1 Mg/Kg Providers Use Dosing Set) 60 mg 1 mg/kg (60 mg) SC Q12H JENNIFER Stop: 05/02/19 13:59 Last Admin: 04/02/19 14:20 Dose: Not Given Documented by: [id number] Enoxaparin Sodium (Lovenox) 60 mg SQ 1415 ONE Stop: 04/02/19 14:16 Last Admin: 04/02/19 14:20 Dose: 60 mg Documented by: [id number] Sodium Chloride (Nss 1000ml) 1,000 mls @ 999 mls/hr IV .Q1H1M JENNIFER Stop: 04/02/19 12:30 Last Infusion: 04/02/19 13:17 Dose: 0 mls/hr Documented by: [id number] Admin: 04/02/19 12:16 Dose: 999 mls/hr Documented by: [id number] Ketorolac Tromethamine (Toradol) 30 mg IV NOW STA Stop: 04/02/19 12:28 Last Admin: 04/02/19 12:43 Dose: 30 mg Documented by: [id number] Lidocaine (Lidoderm 5%) 1 patch TD NOW STA Stop: 04/02/19 13:03 Last Admin: 04/02/19 13:13 Dose: 1 patch Documented by: [id number] Morphine Sulfate (Morphine Sulfate) 4 mg IV NOW STA Stop: 04/02/19 11:22 Last Admin: 04/02/19 12:18 Dose: Not Given Documented by: [id number] Ondansetron HCl (Zofran) 4 mg IV NOW STA Stop: 04/02/19 11:22 Last Admin: 04/02/19 12:18 Dose: 4 mg Documented by: [id number] Medical Decision Making Differential Diagnosis Differential diagnoses includes but is not limited to acute coronary syndrome, myocardial infarction, pericarditis, pulmonary embolus, aortic dissection, pneumonia, pneumothorax, musculoskeletal, shingles, esophageal. Medical Records Attestation: I reviewed the patient's medical records. Home Medications Current Medication List: was personally reviewed by me Laboratory Data Attestation: I reviewed the patient's lab results. Result diagrams: 04/02/19 11:45 04/02/19 11:45 Lab Results 04/02/19 04/02/19 04/02/19 Range/Units 11:10 11:45 11:45 WBC 7.43 (4.8-10.8) K/uL RBC 4.82 (4.2-5.4) M/uL Hgb 15.0 (12.0-16.0) g/dL Hct 41.4 (37-47) % MCV 85.9 (80-100) fL MCH 31.1 (25-34) pg MCHC 36.2 H (32-36) g/dL RDW Std Deviation 39.1 (36.4-46.3) fL RDW Coeff of [place] 12.4 (11.5-14.5) % Plt Count 211 (130-400) K/uL MPV 11.0 H (7.4-10.4) fL Immature Gran % (Auto) 0.3 % Neut % (Auto) 70.0 % Lymph % (Auto) 18.0 % [place] % (Auto) 10.8 % Eos % (Auto) 0.5 % Baso % (Auto) 0.4 % Immature Gran # (Auto) 0.02 (0.00-0.02) K/uL Neut # (Auto) 5.20 (1.4-6.5) K/uL Lymph # (Auto) 1.34 (1.2-3.4) K/uL [place] # (Auto) 0.80 H (0.11-0.59) K/uL Eos # (Auto) 0.04 (0-0.5) K/uL Baso # (Auto) 0.03 (0-0.2) K/uL POC D-Dimer (0-450) ng/mlFEU Sodium 138 (136-145) mmol/L Potassium 3.6 (3.5-5.1) mmol/L Chloride 105 (98-107) mmol/L Carbon Dioxide 25 (21-32) mmol/L Anion Gap 8.0 (3-11) BUN 8 (7-18) mg/dl Creatinine 0.77 (0.6-1.2) mg/dl Est Cr Clr Drug Dosing 84.2 ml/min Est GFR ( Amer) 118.4 Est GFR (Non-Af Amer) 102.2 BUN/Creatinine Ratio 10.1 (10-20) Glucose 79 (70-99) mg/dl Calcium 9.0 (8.5-10.1) mg/dl Total Bilirubin 0.7 (0.2-1) mg/dl AST 22 (15-37) U/L ALT 24 (12-78) U/L Alkaline Phosphatase 69 (45-117) U/L Troponin I < 0.015 (0-0.045) ng/ml Total Protein 8.2 (6.4-8.2) gm/dl Albumin 4.1 (3.4-5.0) gm/dl Globulin 4.1 H (2.5-4.0) gm/dl Albumin/Globulin Ratio 1.0 (0.9-2) Lipase 83 (73-393) U/L Urine Color Yellow Urine Appearance Clear (Clear) Urine pH 7.0 (4.5-7.5) Ur Specific [place] 1.009 (1.000-1.030) Urine Protein Negative (Negative) Urine Glucose (UA) Negative (Negative) Urine Ketones Negative (Negative) Urine Blood Negative (Negative) Urine Nitrite Negative (Negative) Urine Bilirubin Negative (Negative) Urine Urobilinogen Negative (Negative) Ur Leukocyte Esterase Negative (Negative) 04/02/19 Range/Units 12:01 WBC (4.8-10.8) K/uL RBC (4.2-5.4) M/uL Hgb (12.0-16.0) g/dL Hct (37-47) % MCV (80-100) fL MCH (25-34) pg MCHC (32-36) g/dL RDW Std Deviation (36.4-46.3) fL RDW Coeff of [place] (11.5-14.5) % Plt Count (130-400) K/uL MPV (7.4-10.4) fL Immature Gran % (Auto) % Neut % (Auto) % Lymph % (Auto) % [place] % (Auto) % Eos % (Auto) % Baso % (Auto) % Immature Gran # (Auto) (0.00-0.02) K/uL Neut # (Auto) (1.4-6.5) K/uL Lymph # (Auto) (1.2-3.4) K/uL [place] # (Auto) (0.11-0.59) K/uL Eos # (Auto) (0-0.5) K/uL Baso # (Auto) (0-0.2) K/uL POC D-Dimer > 450 H* (0-450) ng/mlFEU Sodium (136-145) mmol/L Potassium (3.5-5.1) mmol/L Chloride (98-107) mmol/L Carbon Dioxide (21-32) mmol/L Anion Gap (3-11) BUN (7-18) mg/dl Creatinine (0.6-1.2) mg/dl Est Cr Clr Drug Dosing ml/min Est GFR ( Amer) Est GFR (Non-Af Amer) BUN/Creatinine Ratio (10-20) Glucose (70-99) mg/dl Calcium (8.5-10.1) mg/dl Total Bilirubin (0.2-1) mg/dl AST (15-37) U/L ALT (12-78) U/L Alkaline Phosphatase (45-117) U/L Troponin I (0-0.045) ng/ml Total Protein (6.4-8.2) gm/dl Albumin (3.4-5.0) gm/dl Globulin (2.5-4.0) gm/dl Albumin/Globulin Ratio (0.9-2) Lipase (73-393) U/L Urine Color Urine Appearance (Clear) Urine pH (4.5-7.5) Ur Specific [place] (1.000-1.030) Urine Protein (Negative) Urine Glucose (UA) (Negative) Urine Ketones (Negative) Urine Blood (Negative) Urine Nitrite (Negative) Urine Bilirubin (Negative) Urine Urobilinogen (Negative) Ur Leukocyte Esterase (Negative) Imaging Data Radiologist's Impression: Radiology results as stated below per my review and the radiologist's interpretation: XR chest 1V portable HISTORY: 33 years-old Female chest pain acute atypical chest pain COMPARISON: Chest radiograph 03/17/2018 TECHNIQUE: Portable AP view of the chest FINDINGS: Cardiac silhouette is enlarged, unchanged. Prior median sternotomy. No pneumothorax, large pleural effusion, focal airspace consolidation or overt pulmonary edema. Degenerative changes of the shoulders and spine. Surgical clips project over the abdominal right upper quadrant. IMPRESSION: No acute process. The above report was generated using voice recognition software. It may contain grammatical, syntax or spelling errors. Electronically signed by: Gustavo Durham M.D. 04/02/2019 11:[address] ANGIOGRAM OF THE CHEST CLINICAL HISTORY: Right-sided chest pain. Possible pulmonary embolism. COMPARISON STUDY: Chest x-ray dated 04/02/2019 TECHNIQUE: Following the IV administration of 120 mL of [id number]-[id number], CT angiogram of the thorax was performed from the thoracic inlet to the lung bases utilizing the pulmonary embolus protocol. Images are reviewed in the axial, sagittal, and coronal planes. IV contrast was administered without complication. MIP imaging was performed. A dose lowering technique was utilized adhering to the principles of ALARA. CT DOSE: 400.77 mGycm FINDINGS: No pathologically enlarged axillary mediastinal or hilar lymph nodes were visualized. There was no evidence of thoracic aortic dilatation. There are right lower lobe pulmonary filling defects indicative of acute pulmonary embolism. There are no findings to indicate right ventricular strain. There is a small right pleural effusion. There are right lower lobe airspace opacities, atelectasis versus pulmonary infarction. There are minor left basilar atelectatic changes IMPRESSION: 1. Right lower lobe pulmonary artery filling defects indicating acute pulmonary embolism 2. Small right pleural effusion with right basilar airspace opacities, atel ectasis versus pulmonary infarction Electronically signed by: Jim [place] M.D. 04/02/2019 1:07 PM ECG Data Attestation: I personally reviewed and interpreted this ECG as follows: Indication: abdominal pain Rate (beats per minute): 85 Rhythm: normal sinus Findings: + other (normal axis, normal intervals) and + T-wave inversion (lead 3); no ST depression, no ST elevation and no acute ischemic change Blood Pressure Blood Pressure Findings: Normal blood pressure Blood Pressure Disposition: did not require urgent referral MDM Narrative The patient is a 33 year old female w/ PMHx bronchitis, cholecystitis, congenital subaortic stenosis, hypokalemia, mitral valve disorder who presents to the ED w/ CC of worsening right sided abdominal pain starting a month ago. Patient was seen and evaluated the bedside. The patient is a prior history of aortic stenosis and associated mitral valve prolapse for which she did receive open heart surgery many many years ago. The patient is complaining of some pleuritic chest pain is right-sided. No reproducible chest wall pain. The patient denies any prior history of DVT or PE. Patient is not on any anticoagulant medications and of control. No recent long car plane travel. The patient is PERC negative but a d-dimer was ordered. The patient does not have any overlying skin changes and no right upper quadrant pain. The patient's blood work showed an elevated d-dimer. The patient did have a CT angios which shows a right lower PE and questionable pulmonary infarct. I did speak with the on-call bell staff who stated that into coagulant medication were not contraindicated given the patient's prior medical history. The patient was given Lovenox. I did speak with the on-call hospitalist agreed to further evaluate treat the patient. Impression & Plan Pulmonary embolism, Pulmonary infarct, Pleuritic chest pain Critical Care Time Critical Care Time: Yes Total Critical Care Time: 55 I have personally spent greater than 55 minutes of critical care time in direct management of this patient. This includes bedside care, interpretation of diagnostic studies, and testing, discussion with consultants, patient, and family members, and other require inpatient management activities. This 55 minutes is in excess of all separately billable procedures. Discharge Plan Visit Data *Final* Discharge Date/Time: 04/02/19 15:25 Chief Complaint: Abdominal Pain Stated Complaint: ABDOMINAL PAIN ED Provider: Lucio Crespo Discharge Problem: Pulmonary embolism, Pulmonary infarct, Pleuritic chest pain Patient Disposition: Admitted As Inpatient Discharge Instructions Interventions: ED Discharge Assessment Last Done: 04/02/19 15:25 Discharge Problem: Pulmonary embolism Qualifiers: Pulmonary embolism type: unspecified Chronicity: unspecified Acute cor pu lmonale presence: without acute cor pulmonale Qualified Code(s): I26.99 - Other pulmonary embolism without acute cor pulmonale The scribe's documentation has been prepared under my direction and personally reviewed by me in its entirety. I confirm that the note above accurately reflects all work, treatment, procedures, and medical decision making performed by me.
[2019-04-02] MEDS ORDERED: ACETAMINOPHEN 325 MG TAB PO PRN (15:46)
--- NOTE | 2019-04-02 16:45 | Ultrasound Report ---
ULTRASOUND BILATERAL LOWER EXTREMITY VENOUS CLINICAL HISTORY: Pulmonary embolus. COMPARISON STUDY: No priors. TECHNIQUE: Real-time, grayscale, and color Doppler sonography of the deep veins of the right and left lower extremity was performed from the inguinal crease to the calf. Compression and augmentation wer e utilized. FINDINGS: There is no sonographic evidence of deep venous thrombosis identified in the right or left lower extremity. The common femoral, superficial femoral, and popliteal veins are patent and normally compressible bilaterally. The greater saphenous vein and the profunda femoris vein at the junction w ith the common femoral vein are clear in both legs. The visualized calf veins are patent bilaterally. IMPRESSION: There is no sonographic evidence of deep venous thrombosis identified in the right or lef t lower extremity. Electronically signed by: Conrado Marsh M.D. 04/02/2019 4:43 PM
[2019-04-02 17:40] LABS: Pregnancy Test, Urine Negative (Negative)
[2019-04-02] MEDS: ENOXAPARIN INJ 60 MG/0.6 ML SYR SQ SCH (23:34)
[2019-04-03] MEDS: ENOXAPARIN INJ 60 MG/0.6 ML SYR SQ SCH (12:38)
[2019-04-03] MEDS ORDERED: methylPREDNISolone 40 MG in SYRINGE 0 ML IV ONE (14:45)
--- NOTE | 2019-04-03 18:42 | Hospitalist Progress Note ---
Date of Service April 03, 2019 Assessment & Plan (1) Pulmonary embolism: Presented to ED with right pleuritic chest pain. D-dimer was elevated. CT angiogram demonstrated right lower lobe pulmonary embolism with suspected associated pulmonary infarction. Patient started on subcutaneous enoxaparin and admitted to the telemetry unit. Venous duplex of lower extremities negative for DVT. Urine beta hCG negative. Transitioned to oral anticoagulation with apixaban, 10 mg twice daily x7 days, then 5 mg twice daily. Confirmed with patient's pharmacist the co-pay would only be $3 per month. Patient did not wish to take strong analgesics for pleuritic chest pain. Given 1 dose of methylprednisolone intravenously and be discharged on prednisone taper over 8 days. May take ibuprofen 400 mg twice daily with food up to twice a day short-term with omeprazole for gastric protection. Duration of therapy to be determined, but 3 months might be reasonable given first occurrence and relatively small pulmonary embolism. Pulmonary embolism could be considered provoked-recent course of medroxypro gesterone for menstrual irregularities plus smoking history. An aunt had a history of DVT and PE, in the setting of malignancy. Suggest outpatient consultation with hematology for further recommendations regarding duration of treatment and whether or not evaluation for hypercoagulable condition be warranted. Routine cancer screening recommendation should be followed. (2) Smoking: Importance of smoking cessation discussed. Ongoing support/counseling in clinic. (3) Discharge planning issues: Discharge to home. Family Medicine follow-up with Dr. Gaitan. Subjective Still having fairly severe right-sided pleuritic chest pain, worse in supine position. No cough, hemoptysis, shortness of breath. Having some bleeding from enoxaparin injection site. No other abnormal bruising or bleeding. Does not want to use any strong analgesics. Anxious to go home. Physical Exam Constitutional: no acute distress Respiratory: no respiratory distress Auscultation: lungs clear to auscultation bilaterally no pleural friction rub appreciated Cardiovascular: Rate/Rhythm: regular rate and regular rhythm Heart Sounds: no gallop, no murmur and no cardiac rub Vessels: no JVD Extremities: no calf tenderness and no edema Gastrointestinal (Abdomen): normal bowel sounds, soft, nontender, no h epatosplenomegaly Skin: no rashes, warm and dry Psychiatric: Orientation: alert and oriented x 3 Results & Data Vital Signs (Past 12 Hours) Vital Signs Temp Pulse Resp BP Pulse Ox 04/03/19 15:36 37.0 C 78 19 119/72 98 04/03/19 11:48 37.4 C 89 18 112/65 98 04/03/19 07:45 37.3 C 85 18 96/50 L 97 (1) Pulmonary embolism Acute cor pulmonale presence: without acute cor pulmonale Chronicity: unspecified Pulmonary embolism type: unspecified Qualified Code(s): I26.99 - Other pulmonary embolism without acute cor pulmonale
--- NOTE | 2019-04-03 18:57 | Discharge Summary ---
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 Right-sided upper abdominal pain started about 2 weeks ago described as moderate to severe, intermittent, occasionally associated with nausea, not related to activity, not relieved by ibuprofen. Patient had difficulty describing the nature of the pain. For this patient presented to the emergency room, was evaluated and discharged on omeprazole and ondansetron. However, pain got worse yesterday, associated with cough productive of intermittent scant sputum, fevers and was worse on deep inspiration and laying on the right side. Not related to foods.Patient denied any chills, anorexia, constipation or diarrhea, melena, yellowish discoloration of eyes. Denied any history of similar complaint in the past. Patient smokes about 1 pack 3 days for the past 17 years. Denies any alcohol use or illicit drug use. Reports an active lifestyle. Denies any recent travels, fall or immobilization Has not had been menses for over 1 year. Reports she has had extensive evaluation some months ago without any definitive results. Principal Diagnosis pulmonary embolism with pulmonary infarction Discharge Data Allergies Allergy/AdvReac Type Severity Reaction Status Date / Time acetaminophen [From Tylenol] AdvReac Mild Vomiting Verified 04/02/19 14:53 Penicillins AdvReac Mild REDNESS Verified 04/02/19 14:53 aspirin AdvReac Unknown AVOIDS DUE Unverified 04/02/19 11:42 TO HEART PROBLEM Consultations 04/02/19 13:47 ED Decision to Admit Stat Ordered Studies 04/02/19 12:21 CT angio chest PE protocol Stat 04/02/19 15:46 US venous doppler [facility] Stat Hospital Course (1) Pulmonary embolism: Presented to ED with right pleuritic chest pain. D-dimer was elevated. CT angiogram demonstrated right lower lobe pulmonary embolism with suspected associated pulmonary infarction. Patient started on subcutaneous enoxaparin and admitted to the telemetry unit. Venous duplex of lower extremities negative for DVT. Urine beta hCG negative. Transitioned to oral anticoagulation with apixaban, 10 mg twice daily x7 days, then 5 mg twice daily. Confirmed with patient's pharmacist the co-pay would only be $3 per month. Patient did not wish to take strong analgesics for pleuritic chest pain. Given 1 dose of methylprednisolone intravenously and be discharged on prednisone taper over 8 days. May take ibuprofen 400 mg twice daily with food up to twice a day short-term with omeprazole for gastric protection. Duration of therapy to be determined, but 3 months might be reasonable given first occurrence and relatively small pulmonary embolism. Pulmonary embolism could be considered provoked-recent course of medroxyprogesterone for menstrual irregularities plus smoking history. An aunt had a history of DVT and PE, in the setting of malignancy. Suggest outpatient consultation with hematology for further recommendations regarding duration of treatment and whether or not evaluation for hypercoagulable condition be warranted. Routine cancer screening recommendations should be followed. Importance of smoking cessation discussed. (2) Smoking: Importance of smoking cessation discussed. Ongoing support/counseling in clinic. (3) Discharge planning issues: Discharge to home. Family Medicine follow-up with Dr. Gaitan. Total Time Total Time Spent Total Time Spent (In Minutes): 40 Discharge Plan Discharge Items Patient Disposition: Home - Self-Care Reason For Visit: pulmonary embolism (blood clot in lung) Discharge Diagnosis: pulmonary embolism (blood clot in lung) Condition: Good Discharge Goals: Decrease discomfort and Improve disease control Activity: As commented below Activity Comment: gradually increase activity as tolerated Non-emergency contact: Primary Care Provider and Hospitalist Call non-emergency contact if: you have any medication questions and your symptoms worsen Follow-up/Referrals: Kandis Gaitan DO [Primary Care Provider] - (Date & Time 04/06/2019 11:00 AM Kandis Gaitan DO) Diet: Heart Healthy Add Provider Instructions: MEDICATION CHANGES: Start apixaban (Eliquis) 10 mg twice a day for 7 days, then 5 mg twice a day. (blood thinner that prevents formation of new blood clots) Start prednisone and taper- 40 mg for 2 days, 30 mg for 2 days, 20 mg for 2 days, then 10 mg for last 2 days. (treats inflammation in lining of lungs) May use ibuprofen 400 mg twice a day with food as needed for severe pain. (treats inflammation and pain) Continue omeprazole (Prilosec) as long as you are using ibuprofen. (protects stomach from developing ulcers) SUMMARY OF TEST RESULTS: CT scan of chest showed a relatively small blood clot in lower part of right lung. Ultrasound of legs did not show any blood clots. PENDING TEST RESULTS: None. OTHER INSTRUCTIONS: Please discuss quitting smoking with Dr. Gaitan. Seek medical attention if you have: * temperature above 101 * chest pain or trouble breathing * abdominal pain, nausea, vomiting * diarrhea, dark stools or bloody stools * abnormal bleeding or bruising * any unanswered questions or concerns Call 911 if symptoms are severe. Please take good care of yourself. Call if you have any questions or problems. You can reach a [facility] hospitalist on duty at [facility] 24 hours a day by calling [phone]. My cell # is [phone]. ADDITIONAL INSTRUCTIONS FOR BLOOD CLOTS Your condition is typically treated with an anticoagulant. Anticoagulants will thin your blood to help prevent new clots. * You should take her medication exactly as directed. * Never skip a dose. * Never take a double dose. If you miss a dose, take it as soon as you remember. Call your Primary Care doctor if you experience any of the following: * Swelling or Pain in your leg * Sudden, continuous pain deep in a muscle * Pain that worsens when you are active or when you stand still for a long time * Chest Pain * Sudden Shortness of Breath * Rapid or pounding heart beat * Fainting * Dizziness * Cough with blood or bloody sputum * Sweating more than normal * Bruises * Heavy or uncontrolled bleeding * Blood in your urine, stool or vomit * Black or tarry stools Caring for Your Self at Home: * Avoid sitting, standing or lying down for long periods without moving your legs and feet * When traveling by car, stop to get out and move around at least once every 3 hours * On long airplane, train or bus rides, get up and move around when possible * If you can't get up, wiggle your toes and tighten your calves to keep your blood moving Follow Up: It is important for you to keep your follow up appointments with your medical provider. Prescriptions: New Eliquis 5 mg tablet 10 mg PO BID Qty: 28 RF: 0 Eliquis 5 mg tablet 5 mg PO BID Qty: 60 RF: 2 prednisone 10 mg tablet See Rx Instructions .ROUTE .COMPLEX Qty: 20 RF: 0 ibuprofen 200 mg tablet 200 mg PO BID PRN (Reason: severe pain) Qty: 30 RF: 0 No Action ondansetron HCl 4 mg tablet 4 mg PO Q8H PRN (Reason: Nausea) RF: 0 omeprazole 40 mg capsule,delayed release(DR/EC) 40 mg PO DAILYBB RF: 0 Visit Report Forms: Smoking Cessation Stand-Alone Forms: Call Back Authorization, On License Of [facility] Discharge Orders: Discharge Order (Routine); Ordered 04/03/19 Ordered By: Marcos Ellis Admission Data Admit Date/Time: 04/02/19 14:44 Attending Provider: Marcos Ellis Admit Provider: Lorena Morfin I. Primary Care Provider: Kandis Gaitan Other Providers: Marcos Ellis Service: Telemetry Other Pending Studies at Discharge: No
[2019-04-03] MEDS ORDERED: IBUPROFEN 200 MG TAB PO ONE (19:00)
[2019-04-03] MEDS ORDERED: APIXABAN 5 MG TABLET PO ONE (20:00)
== END 2019-04-03 19:58 | disposition home or self-care (01) | DRG 175 ==
LOC: ED 09:59 → 2E 14:44

== ENCOUNTER 2019-04-16 18:38 | Observation (INO) ==
[2019-04-16] MEDS ORDERED: SODIUM CHLORIDE 0.9% 500 ML IV SCH (19:30)
[2019-04-16 19:59] LABS: Basophils # (auto) 0.04 K/uL (0-0.2); Basophils % (auto) 0.4 %; Eosinophils # (auto) 0.09 K/uL (0-0.5); Eosinophils % (auto) 0.8 %; Hematocrit (blood only) 39.7 % (37-47); Hemoglobin 13.6 g/dL (12.0-16.0); Immature Granulocytes # (auto) 0.14 K/uL (0.00-0.02); Immature Granulocytes % (auto) 1.3 %; Lymphocytes # (auto) 2.49 K/uL (1.2-3.4); Lymphocytes % (auto) 23.2 %; Mean Corpuscular Hemoglobin 30.4 pg (25-34); Mean Corpuscular Hgb Conc 34.3 g/dL (32-36); Mean Corpuscular Volume 88.8 fL (80-100); Mean Platelet Volume 10.4 fL (7.4-10.4); Monocytes # (auto) 0.92 K/uL (0.11-0.59); Monocytes % (auto) 8.6 %; Neutrophils # (auto) 7.06 K/uL (1.4-6.5); Neutrophils % (auto) 65.7 %; Platelet Count 245 K/uL (130-400); RDW Coefficient of Variation 13.2 % (11.5-14.5); Red Blood Count 4.47 M/uL (4.2-5.4); White Blood Count 10.74 K/uL (4.8-10.8)
[2019-04-16 20:05] LABS: Prothrombin Time 9.9 Seconds (9.0-12.0)
[2019-04-16 20:11] LABS: Alanine Aminotransferase 230 U/L (12-78); Albumin Level 3.7 gm/dl (3.4-5.0); Aspartate Aminotransferase 121 U/L (15-37); BUN Creatinine Ratio 17.8 (10-20); Blood Urea Nitrogen 16 mg/dl (7-18); Calcium 9.5 mg/dl (8.5-10.1); Carbon Dioxide 29 mmol/L (21-32); Chloride 104 mmol/L (98-107); Creatinine Clr Calc Pharmacy 76.7 ml/min; Est GFR (African American) 102.2; Est GFR (Non-African American) 88.1; Glucose 86 mg/dl (70-99); Lipase 238 U/L (73-393); Magnesium 2.2 mg/dl (1.8-2.4); Potassium 3.9 mmol/L (3.5-5.1); Sodium 140 mmol/L (136-145)
[2019-04-16 20:16] LABS: Albumin Globulin Ratio 0.9 (0.9-2); Alkaline Phosphatase 79 U/L (45-117); Bilirubin,Total 0.4 mg/dl (0.2-1); Total Protein 7.7 gm/dl (6.4-8.2); Troponin I < 0.015 ng/ml (0-0.045)
[2019-04-16] MEDS ORDERED: OPTIRAY 320 125ml IV PRN (20:49)
[2019-04-16 20:52] LABS: Appearance Urine Turbid (Clear); Bacteria Urine Automated Negative (Negative); Bilirubin Urine Negative (Negative); Blood Urine Trace (Negative); Color Urine Yellow; Epithelial Cell Urine Auto >30 /lpf (0-5); Glucose Urine UA Negative (Negative); Ketones Urine Negative (Negative); Leukocyte Esterase Urine Negative (Negative); Nitrite Urine Negative (Negative); Protein Urine Negative (Negative); Specific Gravity Urine 1.018 (1.000-1.030); Urobilinogen Urine Negative (Negative); pH Urine 7.5 (4.5-7.5)
--- NOTE | 2019-04-16 21:06 | CT Scan Report ---
CT angio chest PE protocol CLINICAL HISTORY: 33 years-old Female presenting with upper abdominal pain, atypical right lower ches t pain, concern for right lower lobe pulmonary embolus, recent PE. TECHNIQUE: Multidetector CT angiography of the chest was performed after administration of intravenou s contrast. 3-D volumetric and/or maximum intensity projection (MIP) images were subsequently reconst ructed for review. IV contrast: 118 mL of Optiray 320. One or more dose lowering techniques were used consistent with the principles of ALARA (as low as reasonably achievable), including automatic expos ure control, mA or kV adjustment to individual patient size, and/or use of iterative reconstruction. COMPARISON: 04/02/2019. CT DOSE (mGy.cm): The estimated cumulative dose is 579.75 mGy.cm. FINDINGS: [employer] topogram: Unremarkable. Pulmonary vasculature: The study is adequate for assessment of the pulmonary vascular tree. Limited filling defects within s egmental and subsegmental pulmonary arteries of the right lower lobe, some of which are central withi n the vessels. This is the same distribution as on prior exam. The extent of pulmonary emboli have de creased from prior. No convincing evidence of new pulmonary emboli. Main pulmonary artery is not enla rged. No flattening of the interventricular septum. No intracardiac filling defect. No reflux of cont rast into the hepatic veins. Remaining chest: Soft tissues: Normal thyroid and thoracic inlet. No axillary, supraclavicular, mediastinal, or hilar lymphadenopathy. Normal aorta. Normal heart size. No pericardial or pleural effusion. Cholecystectomy clips. Lungs and airways: No pneumothorax. Central airways patent. Pulmonary arteries are not significantly enlarged relative to adjacent bronchi. No interlobular septal thickening. Minimal dependent changes l ikely atelectasis. Musculoskeletal: Median sternotomy. Osseous structures otherwise normal. IMPRESSION: 1. Interval decrease pulmonary emboli burden within segmental and subsegmental pulmonary arteries of the right lower lobe. No convincing evidence of new pulmonary emboli. No evidence of pulmonary infar ct. Electronically signed by: Delmer Noguera M.D. 04/16/2019 9:04 PM
--- NOTE | 2019-04-16 21:21 | CT Scan Report ---
CT abd pelvis IV con only CLINICAL HISTORY: 33 years-old Female presenting with upper abd pain, slight transaminitis. TECHNIQUE: Multidetector CT of the abdomen and pelvis was performed after the administration of intra venous contrast. IV contrast: 118 mL of Optiray 320. One or more dose lowering techniques were used c onsistent with the principles of ALARA (as low as reasonably achievable), including automatic exposur e control, mA or kV adjustment to individual patient size, and/or use of iterative reconstruction. COMPARISON: 04/05/2016. CT DOSE (mGy.cm): The estimated cumulative dose is unavailable at the time of dictation. FINDINGS: [employer] topogram: Cholecystectomy clips. Lung bases: Normal heart size. No pericardial or pleural effusion. A few subsegmental pulmonary embol i noted in the right lower lobe. Minimal bibasilar atelectasis. Liver: Normal morphology. Density suggestive of mild hepatic steatosis. No focal lesion. Patent hepat ic vasculature. Biliary: No intrahepatic or extrahepatic biliary ductal dilatation. Gallbladder surgically absent. Pancreas: Normal. Spleen: Normal. Adrenal glands: Normal. Kidneys and ureters: Nonobstructing 3 mm calculus in the interpolar region of the left kidney. Normal renal parenchyma. No hydronephrosis. Ureters nondistended. Bladder: Incompletely evaluated secondary to underdistention. Pelvic organs: Uterus and ovaries normal. Bowel: Normal appendix. No bowel obstruction. Peritoneal cavity: No free fluid or intraperitoneal gas. Lymph nodes: No enlarged lymph nodes in the abdomen or pelvis. Vasculature: Aorta and IVC patent and normal in caliber. Abdominal wall: Normal. Musculoskeletal: Normal. IMPRESSION: 1. Mild hepatic steatosis. Correlate with the patient's liver function tests to exclude steatohepati tis as a cause for abdominal pain. 2. Post cholecystectomy. 3. Nonobstructing 3 mm left renal calculus. 4. Right lower lobe pulmonary emboli. Please see separately dictated CTA of the chest. Electronically signed by: Delmer Noguera M.D. 04/16/2019 9:20 PM
[2019-04-16] MEDS ORDERED: PANTOprazole 40 MG TAB PO PRN (23:08)
[2019-04-16] MEDS ORDERED: ACETAMINOPHEN 325 MG TAB PO PRN (23:08)
[2019-04-16] MEDS ORDERED: ONDANSETRON INJ 2 MG/ML 2 ML VIAL IV PRN (23:08)
[2019-04-17] MEDS: ENOXAPARIN INJ 60 MG/0.6 ML SYR SQ SCH ×3 (00:18→23:21)
--- NOTE | 2019-04-17 00:39 | History and Physical Report ---
DATE OF ADMISSION: 04/16/2019 CHIEF COMPLAINT: Abnormal labs, abdominal pain, generalized pain. HISTORY OF PRESENT ILLNESS: This is a 33-year-old female with past medical history significant for Shone syndrome, status post 2 open heart surgeries, cholecystitis status post laparoscopic cholecystectomy, was recently in the hospital for right upper abdominal pain and also chest pain on deep inspiration and found to have right lower lobe pulmonary embolism and she was treated with Lovenox and discharged on Eliquis. Her pulmonary embolism thought to be secondary to smoking history and also using of medroxyprogesterone and advised for smoking cessation. She also followed with family doctor and plan for followup with Hematology/Oncology as per PCP notes.. She is trying to quit smoking. She still smokes few cigarettes a day. After discharge, initially she was fine, but then she developed body aches all over the body. , She feels tender all over and also abdominal pain. She has ongoing diarrhea for some time even before diagnosed with pulmonary embolism and today she went to family doctor, complaining of filling of the fluid in the lungs though that feeling is gone now. Thought to be possibly some viral GI infection. Outpatient labs showed elevated transaminitis and she came to the hospital . CTA of the chest shows decrease in her pulmonary embolism burden of the right lower lobe and CT of abdomen and pelvis showed steatohepatitis, possible cause of her abdominal pain and also labs showed AST of 121, ALT of 230, which were normal during last admission. The patient is hemodynamically stable. Chest pain is improved. Denies any shortness of breath. Denies cough. Has some sore throat from previous cough, no headache, no blurred visions. Appetite is okay. No nausea, no vomiting. Has chronic diarrhea. Denies any blood in stools or black stools. Normal bladder movements. No hematuria. No swelling in the legs, no rash. Ambulating okay. ALLERGIES: ASPIRIN, PENICILLINS. PAST MEDICAL HISTORY: As mentioned above. PAST SURGICAL HISTORY: Angioplasty FEM/POP less than 6 years of age, laparoscopic cholecystectomy in 2015,excision of external hemorrhoids in 2004, revise ventricle muscle in 1991, valvuloplasty, aortic open bypass sub aortic stenosis in 1987 x2. MEDICATIONS: The patient is currently on Eliquis 5 mg p.o. b.i.d., omeprazole 40 mg daily p.r.n., Zofran 4 mg p.r.n. FAMILY HISTORY: Significant for, sister was born with hole in heart and s/p surgery. Father has hypertension. Mother has bipolar, Sister bipolar , schizophrenia. Paternal grandmother passed from lung cancer. Paternal grandmother had stroke. Aunt has history of DVT and PE in setting of malignancy. SOCIAL HISTORY: Single, smokes average 0.3 packs a day for last 13 years. No alcohol use, no drug use. REVIEW OF SYMPTOMS: As per HPI. Rest of review of systems negative. PHYSICAL EXAMINATION: GENERAL: The patient is moderate built, not in acute distress. VITAL SIGNS: Temperature 37.1, pulse 84, respiratory rate 18, blood pressure 104/63, oxygen 99% room air. HEENT: No pallor, no icterus. Pupils equal, round, reactive to light. NECK: No JVD, no neck masses. Supple. CARDIOVASCULAR: S1, S2 heard, regular rate and rhythm, no murmur, no gallop. RESPIRATORY SYSTEM: Normal AP diameter. No thyromegaly. No wheezing, no crackles. ABDOMEN: Soft, bowel sounds present. Diffuse abdominal tenderness, no guarding, no rigidity. No distention, no rebound tenderness. CENTRAL NERVOUS SYSTEM: Nonfocal. EXTREMITIES: No edema, no erythema. LABORATORY DATA: WBC 10.7, hemoglobin 13.6, hematocrit 39.7, platelets 245. PT 9.9, INR 1. Sodium 140, potassium 3.9, chloride 104, bicarbonate 29, BUN 16, creatinine 0.8, serum glucose 86. Lactate 1.6, calcium 9.5, magnesium 2.2, total bilirubin 0.4, AST 121, ALT 230, alkaline phosphatase 79, troponin I less than 0.015. Lipase 238. Urinalysis negative. IMAGING: CT of the chest shows interval decreased clot burden of subsegmental pulmonary arteries of the right lower lobe. No convincing evidence of new pulmonary emboli. No evidence of pulmonary infarct. CT of abdomen and pelvis with IV contrast showed mild hepatic steatosis To correlate with patient's liver function tests to exclude steatohepatitis as a cause of abdominal pain, post-cholecystectomy nonobstructing 3-mm left renal calculus, right lower lobe pulmonary emboli. EKG: Shows normal sinus rhythm, rate of 93, no acute ST changes seen. No significant change found. ASSESSMENT AND PLAN: This is a 33-year-old female who was recently diagnosed with pulmonary emboli, presents with generalized abdominal pain, generalized body aches and elevated transaminitis. 1. Abdominal pain, mostly in the right upper quadrant and epigastric region with generalized body aches. Elevated transaminitis. She states the symptoms started since she started on Eliquis. Eliquis can cause less than 1% chance of elevated transaminitis. She also has steatohepatitis on the CAT scan, could also cause of her pain in abdomen. We will hold Eliquis. Follow repeat labs in a.m. and consult GI for any further recommendations. Observe in medical floor. 2. Recent pulmonary embolism, right lower lobe. Holding Eliquis as above. We will place her on Lovenox until further determination of the anticoagulation. 3. History of cholecystitis status post cholecystectomy. 4. History of Shone syndrome, status post cardiac surgeries. 5. Deep venous thrombosis prophylaxis, on Lovenox. DISPOSITION: Observation in medical floor. Expect discharge home and follow with the family doctor. Level 1 full code. MTDD
--- NOTE | 2019-04-17 00:43 | Emergency Department Note ---
Entered by Sravanthi Caruso acting as a scribe for Hira Moulton M.D. History of Present Illness General Chief complaint: Abnormal Labs/Diagnostic Testing Stated complaint: ABNORMAL LAB RESULTS, REFERRED BY History of Present Illness Onset (ago): week(s) 2 Pain Consistency: + constant Maximum Pain Intensity: 8 Current Pain Intensity: 8 Quality: + aching Exacerbated By: + movement Associated symptoms: + nausea/vomiting and + weakness; no chest pain, no fever/chills and no shortness of breath Treatments prior to arrival: none The patient is a 33 year old female who presents to the Emergency Room with complaints of abdominal pain and overall myalgias. The patient was seen at the hospital 2 weeks ago, and diagnosed with blood clots. She has been on Eliquis since then. She now complains of widespread abdominal pain, which is tender to touch. She describes the pain as being stung with a bee all over. She also complains of nausea and weakness. She went back to her doctor on Friday and had blood taken. She called today for the results, and was told to go back to the ED because of signs of possible infection. She reports having a WBC of 14.7. She reports having diarrhea that looks like sand following each meal. She noticed some mucus in it about 2 days ago, which she has never had before. She has a history of a cholecystectomy, pancreatitis, and was told she has a fatty liver. She has had 2 open heart surgeries. The patient denies fevers, shortness of breath, and chest pain. She has not noticed herself become jaundice or yellowed. Home Medications Home Medications Medication Instructions Recorded Confirmed Type omeprazole 40 mg PO DAILY PRN 04/02/19 04/16/19 History ondansetron HCl 4 mg PO Q8H PRN 04/02/19 04/16/19 History apixaban [Eliquis] 5 mg PO BID #60 tab 04/03/19 04/16/19 Rx Allergies Allergy/AdvReac Type Severity Reaction Status Date / Time acetaminophen [From Tylenol] AdvReac Mild Vomiting Verified 04/16/19 22:17 Penicillins AdvReac Mild REDNESS Verified 04/16/19 22:17 aspirin AdvReac Unknown AVOIDS DUE Unverified 04/16/19 22:17 TO HEART PROBLEM Past Med/Surg History Medical History Smoking (Chronic) Pulmonary embolism (Acute) Congenital subaortic stenosis (Chronic) Mitral valve disorder (Chronic 01/05/13) Acute cholecystitis (Resolved) Surgical History Hx laparoscopic cholecystectomy H/O angioplasty History of open heart surgery Family History Aunt Breast cancer Deep vein thrombosis Pulmonary embolism Grandfather (Maternal) Lung cancer Other No pertinent family history in first degree relatives Social History Preferred Language: Maltese Communication Ability: Effective Sorting And Folding Supervisor Required: Yes Beliefs That Will Affect Care: None marital status: Single Current Living Situation: Family current occupational status: employed Feels Safe at Home: Yes Smoking Status: Current every day smoker Tobacco Type: cigarettes ; Second Hand Exposure: No ; Hx Alcohol Use: No Hx Substance Use: No Childhood Exposure to Second-Hand Smoke: No Physical Activity Frequency: Daily Review of Systems See HPI for pertinent positives & negatives. and A total of 10 systems reviewed and were otherwise negative Physical Exam Vital Signs Vital Signs - 24 hr 04/16/19 18:52 04/16/19 19:31 04/16/19 19:46 Temperature 37.1 C Temperature Source Oral Sepsis Recent Fever Within 48 Hours No Sepsis New/Unexplained Change in Mental Status No Sepsis Action Taken by Nursing No Action Required Pulse Rate 109 H 95 H Pulse Rate from SpO2 Sensor 90 Respiratory Rate 18 16 Respiratory Depth Normal Blood Pressure 129/80 111/82 Blood Pressure Mean 96 91 Blood Pressure Position Sitting Pulse Oximetry 98 98 97 Oxygen Delivery Method Room Air Room Air 04/16/19 20:01 04/16/19 20:02 04/16/19 21:12 Temperature Temperature Source Sepsis Recent Fever Within 48 Hours Sepsis New/Unexplained Change in Mental Status Sepsis Action Taken by Nursing Pulse Rate 85 84 Pulse Rate from SpO2 Sensor 86 62 Respiratory Rate 24 18 20 Respiratory Depth Blood Pressure 109/68 125/80 Blood Pressure Mean 81 95 Blood Pressure Position Pulse Oximetry 98 97 Oxygen Delivery Method 04/16/19 21:57 Temperature Temperature Source Sepsis Recent Fever Within 48 Hours Sepsis New/Unexplained Change in Mental Status Sepsis Action Taken by Nursing Pulse Rate Pulse Rate from SpO2 Sensor 60 Respiratory Rate 18 Respiratory Depth Blood Pressure 104/63 Blood Pressure Mean 76 Blood Pressure Position Pulse Oximetry 99 Oxygen Delivery Method GENERAL: Awake, alert, well-appearing HENT: Normocephalic, atraumatic. EYES: Normal conjunctiva. Sclera non-icteric. NECK: Supple. No nuchal rigidity. RESPIRATORY: Clear to auscultation. No wheezes. Normal respiratory effort. CARDIAC: Normal rate. Normal rhythm. Extremities warm and well perfused. GI: Soft, non-distended. Moderate upper abdominal tenderness. No rebound or guarding. No masses. RECTAL: Deferred. MUSCULOSKELETAL: Atraumatic. Chest examination reveals no tenderness. LOWER EXTREMITIES: Calves are equal size bilaterally and non-tender. No edema NEURO: Normal sensorium. No sensory or motor deficits noted. No facial droop. SKIN: Warm and dry. No rash or jaundice noted. Course 1923: Past medical records reviewed. The patient was evaluated in room B05. A complete history and physical exam was performed. 2203: I spoke to Dr. [facility], regarding the patient's concerns about her medication and symptoms. He agreed to take over care of the patient for further evaluation. The patient was agreeable with the treatment plan. Consultations Consultation #1: [facility] the patient's concerns about her medication and symptoms. He agreed to take over care of the patient for further evaluation. The patient was agreeable with the treatment plan. Administered Medications Enoxaparin Sodium (Lovenox) 60 mg SQ Q12H [facility] Stop: 05/16/19 22:59 Last Admin: 04/17/19 00:18 Dose: 60 mg Documented by: [id number] Discontinued Medications Sodium Chloride (Nss) 500 mls @ 999 mls/hr IV .Q31M JENNIFER Stop: 04/16/19 20:00 Last Infusion: 04/16/19 20:14 Dose: 0 mls/hr Documented by: [id number] Admin: 04/16/19 19:49 Dose: 999 mls/hr Documented by: [id number] Ioversol (Optiray 320 125ml) 118 ml IV ONCE PRN PRN Reason: Interaction Checking Stop: 04/20/19 20:48 Last Admin: 04/16/19 20:50 Dose: 118 ml Documented by: [id number] Medical Decision Making Differential Diagnosis Differential diagnosis includes: appendicitis, diverticulitis, PUD, biliary pathology, UTI, pancreatitis, obstruction, mesenteric ischemia, aortic pat hology, infections, inflammatory bowel disease, renal colic, as well as others were entertained. Medical Records Attestation: I reviewed the patient's medical records. Home Medications Current Medication List: was personally reviewed by me Laboratory Data Attestation: I reviewed the patient's lab results. Result diagrams: 04/16/19 19:42 04/16/19 19:42 Lab Results 04/16/19 04/16/19 04/16/19 Range/Units 19:42 19:42 19:42 WBC 10.74 (4.8-10.8) K/uL RBC 4.47 (4.2-5.4) M/uL Hgb 13.6 (12.0-16.0) g/dL Hct 39.7 (37-47) % MCV 88.8 (80-100) fL MCH 30.4 (25-34) pg MCHC 34.3 (32-36) g/dL RDW Std Deviation 43.0 (36.4-46.3) fL RDW Coeff of Los 13.2 (11.5-14.5) % Plt Count 245 (130-400) K/uL MPV 10.4 (7.4-10.4) fL Immature Gran % (Auto) 1.3 % Neut % (Auto) 65.7 % Lymph % (Auto) 23.2 % Bent % (Auto) 8.6 % Eos % (Auto) 0.8 % Baso % (Auto) 0.4 % Immature Gran # (Auto) 0.14 H (0.00-0.02) K/uL Neut # (Auto) 7.06 H (1.4-6.5) K/uL Lymph # (Auto) 2.49 (1.2-3.4) K/uL Bent # (Auto) 0.92 H (0.11-0.59) K/uL Eos # (Auto) 0.09 (0-0.5) K/uL Baso # (Auto) 0.04 (0-0.2) K/uL PT 9.9 (9.0-12.0) Seconds INR 1.0 (0.9-1.1) Sodium 140 (136-145) mmol/L Potassium 3.9 (3.5-5.1) mmol/L Chloride 104 (98-107) mmol/L Carbon Dioxide 29 (21-32) mmol/L Anion Gap 7.0 (3-11) BUN 16 (7-18) mg/dl Creatinine 0.87 (0.6-1.2) mg/dl Est Cr Clr Drug Dosing 76.7 ml/min Est GFR ( Amer) 102.2 Est GFR (Non-Af Amer) 88.1 BUN/Creatinine Ratio 17.8 (10-20) Glucose 86 (70-99) mg/dl Lactate (0.4-2.0) mmol/L Calcium 9.5 (8.5-10.1) mg/dl Magnesium 2.2 (1.8-2.4) mg/dl Total Bilirubin 0.4 (0.2-1) mg/dl AST 121 H (15-37) U/L ALT 230 H (12-78) U/L Alkaline Phosphatase 79 (45-117) U/L Troponin I < 0.015 (0-0.045) ng/ml Total Protein 7.7 (6.4-8.2) gm/dl Albumin 3.7 (3.4-5.0) gm/dl Globulin 4.0 (2.5-4.0) gm/dl Albumin/Globulin Ratio 0.9 (0.9-2) Lipase 238 (73-393) U/L Urine Color Urine Appearance (Clear) Urine pH (4.5-7.5) Ur Specific [place] (1.000-1.030) Urine Protein (Negative) Urine Glucose (UA) (Negative) Urine Ketones (Negative) Urine Blood (Negative) Urine Nitrite (Negative) Urine Bilirubin (Negative) Urine Urobilinogen (Negative) Ur Leukocyte Esterase (Negative) Urine WBC (Auto) (0-5) /hpf Urine RBC (Auto) (0-4) /hpf U Hyaline Cast (Auto) (0-5) /lpf U Epithel Cells (Auto) (0-5) /lpf Urine Bacteria (Auto) (Negative) 04/16/19 04/16/19 Range/Units 19:42 20:30 WBC (4.8-10.8) K/uL RBC (4.2-5.4) M/uL Hgb (12.0-16.0) g/dL Hct (37-47) % MCV (80-100) fL MCH (25-34) pg MCHC (32-36) g/dL RDW Std Deviation (36.4-46.3) fL RDW Coeff of Los (11.5-14.5) % Plt Count (130-400) K/uL MPV (7.4-10.4) fL Immature Gran % (Auto) % Neut % (Auto) % Lymph % (Auto) % Bent % (Auto) % Eos % (Auto) % Baso % (Auto) % Immature Gran # (Auto) (0.00-0.02) K/uL Neut # (Auto) (1.4-6.5) K/uL Lymph # (Auto) (1.2-3.4) K/uL Bent # (Auto) (0.11-0.59) K/uL Eos # (Auto) (0-0.5) K/uL Baso # (Auto) (0-0.2) K/uL PT (9.0-12.0) Seconds INR (0.9-1.1) Sodium (136-145) mmol/L Potassium (3.5-5.1) mmol/L Chloride (98-107) mmol/L Carbon Dioxide (21-32) mmol/L Anion Gap (3-11) BUN (7-18) mg/dl Creatinine (0.6-1.2) mg/dl Est Cr Clr Drug Dosing ml/min Est GFR ( Amer) Est GFR (Non-Af Amer) BUN/Creatinine Ratio (10-20) Glucose (70-99) mg/dl Lactate 1.6 (0.4-2.0) mmol/L Calcium (8.5-10.1) mg/dl Magnesium (1.8-2.4) mg/dl Total Bilirubin (0.2-1) mg/dl AST (15-37) U/L ALT (12-78) U/L Alkaline Phosphatase (45-117) U/L Troponin I (0-0.045) ng/ml Total Protein (6.4-8.2) gm/dl Albumin (3.4-5.0) gm/dl Globulin (2.5-4.0) gm/dl Albumin/Globulin Ratio (0.9-2) Lipase (73-393) U/L Urine Color Yellow Urine Appearance Turbid A (Clear) Urine pH 7.5 (4.5-7.5) Ur Specific [place] 1.018 (1.000-1.030) Urine Protein Negative (Negative) Urine Glucose (UA) Negative (Negative) Urine Ketones Negative (Negative) Urine Blood Trace H (Negative) Urine Nitrite Negative (Negative) Urine Bilirubin Negative (Negative) Urine Urobilinogen Negative (Negative) Ur Leukocyte Esterase Negative (Negative) Urine WBC (Auto) 1-5 (0-5) /hpf Urine RBC (Auto) 5-10 H (0-4) /hpf U Hyaline Cast (Auto) 1-5 (0-5) /lpf U Epithel Cells (Auto) >30 H (0-5) /lpf Urine Bacteria (Auto) Negative (Negative) Imaging Data Radiologist's Impression: Radiology results as stated below per my review and the radiologist's interpretation: CT angio chest PE protocol CLINICAL HISTORY: 33 years-old Female presenting with upper abdominal pain, atypical right lower chest pain, concern for right lower lobe pulmonary embolus, recent PE. TECHNIQUE: Multidetector CT angiography of the chest was performed after administration of intravenous contrast. 3-D volumetric and/or maximum intensity projection (MIP) images were subsequently reconstructed for review. IV contrast: 118 mL of Optiray 320. One or more dose lowering techniques were used consistent with the principles of ALARA (as low as reasonably achievable), including automatic exposure control, mA or kV adjustment to individual patient size, and/or use of iterative reconstruction. COMPARISON: 04/02/2019. CT DOSE (mGy.cm): The estimated cumulative dose is 579.75 mGy.cm. FINDINGS: Fisher Pound Net Or Trap topogram: Unremarkable. Pulmonary vasculature: The study is adequate for assessment of the pulmonary vascular tree. Limited filling defects within segmental and subsegmental pulmonary arteries of the right lower lobe, some of which are central within the vessels. This is the same distribution as on prior exam. The extent of pulmonary emboli have decreased from prior. No convincing evidence of new pulmonary emboli. Main pulmonary artery is not enlarged. No flattening of the interventricular septum. No intracardiac filling defect. No reflux of contrast into the hepatic veins. Remaining chest: Soft tissues: Normal thyroid and thoracic inlet. No axillary, supraclavicular, mediastinal, or hilar lymphadenopathy. Normal aorta. Normal heart size. No pericardial or pleural effusion. Cholecystectomy clips. Lungs and airways: No pneumothorax. Central airways patent. Pulmonary arteries are not significantly enlarged relative to adjacent bronchi. No interlobular septal thickening. Minimal dependent changes likely atelectasis. Musculoskeletal: Median sternotomy. Osseous structures otherwise normal. IMPRESSION: 1. Interval decrease pulmonary emboli burden within segmental and subsegmental pulmonary arteries of the right lower lobe. No convincing evidence of new p ulmonary emboli. No evidence of pulmonary infarct. Electronically signed by: Delmer Noguera M.D. 04/16/2019 9:[address] abd pelvis IV con only CLINICAL HISTORY: 33 years-old Female presenting with upper abd pain, slight transaminitis. TECHNIQUE: Multidetector CT of the abdomen and pelvis was performed after the administration of intravenous contrast. IV contrast: 118 mL of Optiray 320. One or more dose lowering techniques were used consistent with the principles of ALARA (as low as reasonably achievable), including automatic exposure control, mA or kV adjustment to individual patient size, and/or use of iterative reconstruction. COMPARISON: 04/05/2016. CT DOSE (mGy.cm): The estimated cumulative dose is unavailable at the time of dictation. FINDINGS: [place] Net Or Trap topogram: Cholecystectomy clips. Lung bases: Normal heart size. No pericardial or pleural effusion. A few subsegmental pulmonary emboli noted in the right lower lobe. Minimal bibasilar atelectasis. Liver: Normal morphology. Density suggestive of mild hepatic steatosis. No focal lesion. Patent hepatic vasculature. Biliary: No intrahepatic or extrahepatic biliary ductal dilatation. Gallbladder surgically absent. Pancreas: Normal. Spleen: Normal. Adrenal glands: Normal. Kidneys and ureters: Nonobstructing 3 mm calculus in the interpolar region of the left kidney. Normal renal parenchyma. No hydronephrosis. Ureters nondistended. Bladder: Incompletely evaluated secondary to underdistention. Pelvic organs: Uterus and ovaries normal. Bowel: Normal appendix. No bowel obstruction. Peritoneal cavity: No free fluid or intraperitoneal gas. Lymph nodes: No enlarged lymph nodes in the abdomen or pelvis. Vasculature: Aorta and IVC patent and normal in caliber. Abdominal wall: Normal. Musculoskeletal: Normal. IMPRESSION: 1. Mild hepatic steatosis. Correlate with the patient's liver function tests to exclude steatohepatitis as a cause for abdominal pain. 2. Post cholecystectomy. 3. Nonobstructing 3 mm left renal calculus. 4. Right lower lobe pulmonary emboli. Please see separately dictated CTA of the chest. Electronically signed by: Delmer Noguera M.D. 04/16/2019 9:20 PM ECG Data Attestation: I personally reviewed and interpreted this ECG as follows: Indication: abdominal pain Rate (beats per minute): 98 Rhythm: normal sinus Findings: + other (normal intervals); no PVC, no ST depression and no ST elevation Blood Pressure Blood Pressure Findings: Normal blood pressure Blood Pressure Disposition: did not require urgent referral MDM Narrative Patient is a 33-year-old female with a past medical history including Sjogren's disease status post repair, prior cholecystectomy, seen here about 2 weeks ago for right lower lobe PE put on Eliquis. Since then she states she is been having multiple issues including diffuse myalgias and pain prickly pain in the upper abdomen. Checking with her primary doctor Friday had blood work drawn and primary doctor referred her here today due to elevations of her white blood cell count as well as liver enzyme elevations. States of 14 noted on outside labs 2 days ago however today white blood cell count of 10. No fevers reported. No significant trauma reported. No EKG changes negative troponin doubt this cardiac. CTA repeat today shows improving clot burden. AST and ALT are elevated & she denies any significant alcohol usage. LFTs of basically doubled. No bilirubin elevation and CT scan of the abdomen pelvis does not show any convincing evidence of obstruction. Again prior cholecystectomy. Normal lactate. No evidence of UTI or kidney stones. No evidence of active pancreatitis. Denies tylenol usage/overdose. Patient still with significant discomfort. Discussed with her close outpatient follow-up versus observation stay. Patient wished to stay for observation. Discussed with the [facility] hospitalist. Patient convinced symptoms related to Eliquis medication, per pharmacy 0.6-0.8% reported L:FT changes on Eliquis,. Impression & Plan Elevated LFTs, Upper abdominal pain Discharge Plan Visit Data *Final* Discharge Date/Time: 04/16/19 22:50 Chief Complaint: Abnormal Labs/Diagnostic Testing Stated Complaint: ABNORMAL LAB RESULTS, REFERRED BY DR BARCENAS Provider: Hira Moulton Discharge Problem: Elevated LFTs, Upper abdominal pain Patient Disposition: Admitted As Inpatient Discharge Instructions Interventions: ED Discharge Assessment Last Done: 04/16/19 22:50 The scribe's documentation has been prepared under my direction and personally reviewed by me in its entirety. I confirm that the note above accurately reflects all work, treatment, procedures, and medical decision making performed by me.
[2019-04-17 08:07] LABS: Basophils # (auto) 0.03 K/uL (0-0.2); Basophils % (auto) 0.4 %; Eosinophils % (auto) 1.2 %; Hematocrit (blood only) 37.3 % (37-47); Hemoglobin 12.7 g/dL (12.0-16.0); Immature Granulocytes # (auto) 0.09 K/uL (0.00-0.02); Immature Granulocytes % (auto) 1.1 %; Lymphocytes # (auto) 2.37 K/uL (1.2-3.4); Lymphocytes % (auto) 29.3 %; Mean Corpuscular Hemoglobin 30.3 pg (25-34); Mean Platelet Volume 10.4 fL (7.4-10.4); Monocytes # (auto) 0.84 K/uL (0.11-0.59); Monocytes % (auto) 10.4 %; Neutrophils # (auto) 4.67 K/uL (1.4-6.5); Neutrophils % (auto) 57.6 %; Platelet Count 195 K/uL (130-400); RDW Coefficient of Variation 13.4 % (11.5-14.5); RDW Standard Deviation 43.4 fL (36.4-46.3); Red Blood Count 4.19 M/uL (4.2-5.4)
[2019-04-17 08:33] LABS: BUN Creatinine Ratio 23.2 (10-20); Calcium 8.7 mg/dl (8.5-10.1); Est GFR (African American) 134.1; Est GFR (Non-African American) 115.7; Magnesium 2.1 mg/dl (1.8-2.4); Potassium 3.9 mmol/L (3.5-5.1)
[2019-04-17 08:37] LABS: Alanine Aminotransferase 178 U/L (12-78); Albumin Level 3.1 gm/dl (3.4-5.0); Alkaline Phosphatase 65 U/L (45-117); Aspartate Aminotransferase 82 U/L (15-37); Bilirubin Direct < 0.1 mg/dl (0-0.2); Bilirubin,Total 0.4 mg/dl (0.2-1); Total Protein 6.7 gm/dl (6.4-8.2)
--- NOTE | 2019-04-17 09:31 | Gastrointestinal Consultation ---
Date of Consultation April 17, 2019 Assessment & Plan (1) Elevated LFTs: 33 yo female with recently diagnosed PE started on Eloquis. Noted to have mildly elevated transaminases. Would check a CK to be sure this is liver and not muscle. Can also consider RUQ US to evaluate the bile ducts, though her AP and TB are normal. The abd pain she describes has been there since her GB surgery 5 years ago. THis is not acute but daily PPI and an outpatient EGD may be of benefit once she has recovered from the acute phase of her PE. (2) Upper abdominal pain: (3) Pulmonary embolism: History of Present Illness Reason for Consultation: elevated transaminases abd pain Attending Physician: Maureen Hernandez MD History of Present Illness Ms. Chiu is a 33 yo female with a history of congenital heart disease and a recent diagnosis of VTE at which time she was started on Eloquis. She presented to the ER with complaints of tingling/shock feeling all over her body as well as chest and epigastric pain. She has a history of cholecystectomy 5 years ago. On arrival she was noted to have mildly elevated transaminases with AST of 121 and ALT of 230. AP and bili are normal. She has not had any problems with eating. No nausea or vomiting. Has chronic loose stools, but 2-3 times a day and usually following food. No blood or mucus. She tells me that she has had bloating for the last several months. Was started on PPI a few weeks ago but has not been taking it. Repeat liver enzymes this AM show improvement with AST of 82 and ALT of 170. CK was not checked. CT scan shows improving clot burden in lung. Note is made of fatty liver. Allergies Allergy/AdvReac Type Severity Reaction Status Date / Time acetaminophen [From Tylenol] AdvReac Mild Vomiting Verified 04/16/19 22:17 Penicillins AdvReac Mild REDNESS Verified 04/16/19 22:17 aspirin AdvReac Unknown AVOIDS DUE Unverified 04/16/19 22:17 TO HEART PROBLEM Home Medications Home Medications Medication Instructions Recorded Confirmed Type omeprazole 40 mg PO DAILY PRN 04/02/19 04/16/19 History ondansetron HCl 4 mg PO Q8H PRN 04/02/19 04/16/19 History apixaban [Eliquis] 5 mg PO BID #60 tab 04/03/19 04/16/19 Rx Patient History Medical History Smoking (Chronic) Pulmonary embolism (Acute) Congenital subaortic stenosis (Chronic) Mitral valve disorder (Chronic 01/05/13) Acute cholecystitis (Resolved) Surgical History Hx laparoscopic cholecystectomy H/O angioplasty History of open heart surgery Family History Aunt Breast cancer Deep vein thrombosis Pulmonary embolism Grandfather (Maternal) Lung cancer Other No pertinent family history in first degree relatives Social History Preferred Language: Kazakh Communication Ability: Effective Car Oiler Required: No Beliefs That Will Affect Care: None marital status: Single Current Living Situation: Family current occupational status: employed Other Information That Helps Us Care for You: No Feels Safe at Home: Yes Safety Concerns: Feels Safe At This Time Smoking Status: Current every day smoker Tobacco Type: cigarettes ; Do You Dip or Chew Tobacco: No ; Second Hand Exposure: No ; Tobacco Cessation Education Requested by Patient: No Hx Alcohol Use: No Hx Substance Use: No Childhood Exposure to Second-Hand Smoke: No Physical Activity Frequency: Daily Review of Systems Review of Systems: All systems reviewed & are unremarkable except as noted in HPI & below Physical Exam Constitutional: WD/WN, vitals as above Eyes: PERRL, conjunctivae normal, anicteric sclerae Neck: trachea midline, no thyromegaly Respiratory: normal respiratory effort, lungs clear to auscultation Cardiovascular: RRR, no murmur, no edema Gastrointestinal (Abdomen): normal bowel sounds, soft, nontender, no hepato splenomegaly soft, obese Musculoskeletal: no cyanosis or clubbing, extremities motor strength 5/5 Neurologic: CN's II-XI intact bilaterally Results & Data Vital Signs (Past 12 Hours) Vital Signs Temp Pulse Resp BP BP Pulse Ox 04/17/19 07:16 36.5 C 70 18 97/62 L 98 04/16/19 23:08 36.5 C 85 14 111/72 98 04/16/19 21:57 18 104/63 99 (1) Pulmonary embolism Acute cor pulmonale presence: without acute cor pulmonale Chronicity: unspecified Pulmonary embolism type: unspecified Qualified Code(s): I26.99 - Other pulmonary embolism without acute cor pulmonale
--- NOTE | 2019-04-17 15:58 | Hospitalist Progress Note ---
Date of Service April 17, 2019 Assessment & Plan (1) Elevated LFTs: Presented with elevated AST ALT with normal bilirubin level Possible adverse drug reaction? Recently started on Eliquis for pulmonary embolism Patient has been kept on hold, On Lovenox bridge therapy, Repeat LFT in a.m. Does not have any right upper quadrant pain, no nausea Patient is status post cholecystectomy Appreciate input from GI (2) Pulmonary embolism: Diagnosed 2 weeks earlier, provoked thromboembolic event, as patient was on hormonal contraceptive medication Started on Eliquis NOAC Discontinued for possible cause of transaminitis On therapeutic dose of Lovenox Repeat LFT in a.m., Start on Coumadin LFTs continues to improve CODE STATUS: Full code DVT prophylaxis: Lovenox therapeutic dose Disposition: Plan to discharge home when medically stable Subjective States having some epigastric discomfort, no nausea vomiting Feels like burning sensation in arms and legs, reports she has been having that since yesterday, no rash no erythema No complaint of chest pain or shortness of breath, No fever chills Physical Exam Physical Exam: GENERAL: No sign of distress, HEENT: Sclera nonicteric, pink-purple bilateral equal reactive to light extraocular muscle intact Normal oral mucosa, neck: No JVD, no thyromegaly, trachea midline Lungs: Clear to auscultate, no wheeze or rales Cardiovascular: Regular S1 and S2, no murmur or gallop, no JVD, no lower extremity edema Abdomen: Soft, nontender, bowel sounds active, no hepatosplenomegaly Extremities: No rash or deformity, normal joint, Neuro: No focal neurological deficit, no dysarthria, no facial droop Psych: Alert awake oriented x3: Euthymic Skin: No rash LYMPH NODES: No cervical lymphadenopathy Results & Data Vital Signs (Past 12 Hours) Vital Signs Temp Pulse Pulse Resp BP BP Pulse Ox 04/17/19 15:14 36.8 C 79 19 112/68 98 04/17/19 07:16 36.5 C 70 18 97/62 L 98 (1) Pulmonary embolism Acute cor pulmonale presence: without acute cor pulmonale Chronicity: unspecified Pulmonary embolism type: unspecified Qualified Code(s): I26.99 - Other pulmonary embolism without acute cor pulmonale
[2019-04-17] MEDS ORDERED: predniSONE 20 MG TAB PO STA (19:15)
[2019-04-18 09:19] LABS: Alanine Aminotransferase 169 U/L (12-78); Albumin Level 3.4 gm/dl (3.4-5.0); Alkaline Phosphatase 67 U/L (45-117); Aspartate Aminotransferase 72 U/L (15-37); Bilirubin Direct < 0.1 mg/dl (0-0.2); Bilirubin,Total 0.4 mg/dl (0.2-1); Total Protein 7.1 gm/dl (6.4-8.2)
[2019-04-18 09:24] LABS: Hepatitis B Surface Antigen Neg (Neg)
[2019-04-18 09:52] LABS: Hepatitis C IgG 13Yrs+Old_Rflx Neg (Neg)
[2019-04-18] MEDS ORDERED: WARFARIN SOD 5 MG TAB PO ONE (11:10)
[2019-04-18] MEDS ORDERED: LOVENOX TEACHING KIT ONE (11:11)
[2019-04-18] MEDS: ENOXAPARIN INJ 60 MG/0.6 ML SYR SQ SCH (12:56)
--- NOTE | 2019-04-18 13:27 | Discharge Summary ---
Date of Service April 18, 2019 Principal Diagnosis PULMONARY EMBOLISM, ABNORMAL LIVER FUNCTION TEST Discharge Exam Constitutional WD/WN, vitals as above no acute distress Eyes PERRL, conjunctivae normal, anicteric sclerae ENMT external ear and nose normal, oropharynx normal Neck trachea midline, no thyromegaly Respiratory normal respiratory effort, lungs clear to auscultation Cardiovascular RRR, no murmur, no edema Gastrointestinal (Abdomen) normal bowel sounds, soft, nontender, no hepatosplenomegaly Musculoskeletal no cyanosis or clubbing, extremities motor strength 5/5 Neurologic PERRL, EOMI, accommodation nl, no face palsy, no dysarthria Psychiatric A+Ox3, euthymic affect Discharge Data Allergies Allergy/AdvReac Type Severity Reaction Status Date / Time apixaban [From Eliquis] AdvReac Intermediate Abdominal Verified 04/18/19 13:20 Pain acetaminophen [From Tylenol] AdvReac Mild Vomiting Verified 04/16/19 22:17 Penicillins AdvReac Mild REDNESS Verified 04/16/19 22:17 aspirin AdvReac Unknown AVOIDS DUE Unverified 04/16/19 22:17 TO HEART PROBLEM Consultations 04/16/19 21:59 ED Decision to Admit Stat 04/16/19 23:08 Consult Case Management - Discharge Planning Routine 04/17/19 08:00 Consult Gastroenterology Routine Ordered Studies 04/16/19 19:47 CT abd pelvis IV con only Stat CT angio chest PE protocol Stat Hospital Course (1) Elevated LFTs: Presented with elevated AST ALT with normal bilirubin level Possible adverse drug reaction? Recently started on Eliquis for pulmonary embolism/no other new meds, CT abdomen pelvis: 1. Mild hepatic steatosis. 2. Postcholecystectomy Liver function/transaminitis improved: After Eliquis been discontinued AST: 121-82-72 ALT: 230-178-169 Normal bilirubin, normal alkaline phosphatase Eliquis been discontinued On Lovenox bridge therapy, Started on p.o. Coumadin Does not have any right upper quadrant pain, no nausea Patient is status post cholecystectomy Appreciate input from GI Outpatient lab work: LFT in 1 week, Recommend right upper quadrant ultrasound if LFTs is not normalized in 1 week (2) Pulmonary embolism: Diagnosed 2 weeks earlier, provoked thromboembolic event, as patient was on hormonal contraceptive medication Started on Eliquis Eliquis discontinued for possible cause of transaminitis On therapeutic dose of Lovenox Patient started on Coumadin, CODE STATUS: Full code DVT prophylaxis: Lovenox therapeutic dose/coumadin Disposition: Pt is stable to be discharged home today with Lovenox bridge therapy and Coumadin Total Time Total Time Spent Total Time Spent (In Minutes): approx 35 mins Total Time Includes: Examination of the Patient, Discharge Planning and Medication Reconciliation Discharge Plan Discharge Items Patient Disposition: Home - Self-Care Reason For Visit: ABNORMAL LABS Discharge Diagnosis: PULMONARY EMBOLISM, ABNORMAL LIVER FUNCTION TEST Activity: Resume your previous activity Non-emergency contact: Primary Care Provider Call non-emergency contact if: you have any medication questions Follow-up/Referrals: Kandis Gaitan DO [Primary Care Provider] - Diet: Regular and Low Fat Ambulatory Orders: Comprehensive Metabolic Panel (Routine) Timeframe: 1 Week Location: Determined by Patient Ordered By: Maureen Hernandez Prothrombin Time INR (Routine) Timeframe: [id number] Location: Determined by Patient Ordered By: Maureen Hernandez Add Attending Provider Instructions: Hospital follow-up with your family physician in 1 week PT/INR check on 04/21/2019 Repeat lab work: Comprehensive metabolic panel in 1 week NEW MEDICATIONS: Coumadin 5 mg 1 tablet by mouth daily: Blood thinner treatment for blood clot in your lungs Lovenox injection 60 mg twice daily checked subcutaneously(under the skin) - blood thinner Lab work INR to be checked on 3 days Lovenox injection can be discontinued if INR is equal or more than 2 Please follow-up with anticoagulation/Coumadin clinic for monitoring of lab work: PT/INR and Coumadin dose STOP TAKING THESE MEDICATIONS: Do not take Eliquis: Possible causing elevated/abnormal liver function test Stop taking omeprazole: Also noted to have side effect causing abnormal liver function test Lab work: Liver function test in 1 week You may need right upper quadrant ultrasound if your liver function test remains abnormal Pending Studies at Discharge: Yes Studies:: RIGHT UPPER QUADRANT ULTRASOUND IF LIVER FUNCTION DOES NOT NORMALIZE IN 1 WEEK LIVER FUNCTION TEST A WEEK LAB WORK : PT/INR CHECK ON Friday04/21/2019 Stand-Alone Forms: My [facility] Medications and DC Order Prescriptions: New enoxaparin 60 mg/0.6 mL Syringe 60 mg subcut Q12H 5 Days Qty: 10 RF: 0 warfarin [Coumadin] 5 mg tablet 5 mg PO DAILY Qty: 30 RF: 3 Continued ondansetron HCl 4 mg tablet 4 mg PO Q8H PRN (Reason: Nausea) RF: 0 Discontinued omeprazole 40 mg capsule,delayed release(DR/EC) 40 mg PO DAILY PRN (Reason: Acid Reflux) RF: 0 Eliquis 5 mg tablet 5 mg PO BID Qty: 60 RF: 2 Discharge Orders: Discharge Order (Routine); Ordered 04/18/19 Ordered By: Maureen Hernandez Admission Data Admit Date/Time: 04/16/19 22:34 Attending Provider: Maureen Hernandez Admit Provider: Zac Jackson Primary Care Provider: Kandis Gaitan Other Providers: Zac Jackson ; Feliberto Busch Other Interventions: Discharge Summary Assessment (RN) Last Done: 04/18/19 13:08
[2019-04-18] MEDS ORDERED: WARFARIN SOD 5 MG TAB PO SCH (16:00)
[2019-04-20 11:13] LABS: Hepatitis A Antibody IgM NON-REACTIVE (NON-REACTIVE); Hepatitis B Core Antibody IgM NON-REACTIVE (NON-REACTIVE)
[2019-04-21 22:46] LABS: B2 Glycoprotein IgA <9 SAU (<=20); B2 Glycoprotein IgG <9 SGU (<=20); B2 Glycoprotein IgM <9 SMU (<=20); Phosphatidylserine IgG <10 U/mL (<10); Phosphatidylserine IgM <25 U/mL (<25)
== END 2019-04-18 17:24 | disposition home or self-care (01) ==
LOC: 2N 18:38 → ED 18:38 → 2N 22:50